=== PATIENT | female | born 1995 | race Caucasian/White ===

== ENCOUNTER → 2018-04-06 | Outpatient (CLI) | payer BC ==
[~2018-04-06] MED LIST: AMOX250S6 PO; BCP PO; CEFU250T11 PO; DEXA0.5E PO; HYDR473S50 PO; TETRACAINESUCKERS MT
--- NOTE | 2018-04-06 16:54 | Diagnostic Imaging Report ---
INDICATION: survey. TECHNIQUE: Multiple real-time grayscale images were obtained over the gravid uterus. COMPARISON: There are no prior studies available for comparison. FINDINGS: There is a single live fetus in transverse presentation. heart motion was noted and a rate of 136 BPM was recorded. There were no abnormalities identified but the spine was not well imaged. The growth parameters are fairly uniform and average 20 weeks 4 days +/-1.5 weeks. The placenta is anterior and there is no previa. The amniotic fluid volume is within normal limits. The cervix was identified and measures 5.1 cm in length. Biometrical measurements are as follows: Biparietal 4.78 cm, age 20 weeks 4 days. Head circumference 18.27 cm, age 20 weeks 5 days. Abdominal circumference 15.15 cm, age 20 weeks 3 days. Femur length 3.29 cm, age 20 weeks 2 days. Sonographic estimate age: 20 weeks 4 days. Sonographic estimated date of delivery: 08/20/18. Estimated Weight: 349 gm (+/- 51 gm). LMP percentile: 67%. heart rate: 143 beats per minute. number: 1 of 1. IMPRESSION: 1. There is a single live fetus at approximately 20 weeks 4 days gestation +/-1.5 weeks. The EDC is August 20, 2018. 2. There were no abnormalities identified, although the spine was not well imaged. It may prove worthwhile to have a short-term (4-6 week) followup exam for further study. 3. The growth parameters are fairly uniform. Dictated by: Dictated on workstation # [id number]
== END ==
LOC: RAD 15:22
PROVIDERS: ATTEND Obstetrics & Gynecology
DX: Z36.89 Encounter for other specified antenatal screening (principal); Z3A.20 20 weeks gestation of pregnancy
CPT/HCPCS: 76805

== ENCOUNTER 2018-08-19 20:45 | Inpatient (IN) | payer BC ==
[~2018-08-19] VITALS: Ht 160 cm; Wt 85.3 kg
--- NOTE | 2018-08-19 19:00 | NUR ---
RACHELL PERKINS presented to unit via by ambulation from ED, accompanied by SO, with c/o INDUCTION. RACHELL PERKINS weighed, gowned, voided, and to bed., VS taken. RACHELL PERKINS oriented to bed controls, call light, TV, heat, and A/C controls.
[2018-08-19 20:50] VITALS: BP 135/93
--- OUTSIDE RECORDS SUMMARY | 2018-08-19 20:50 | XMS REPORT ---
Author Author KURT MERRITT Organization [facility] Address [address] [place] [address] Care Team Providers Care Fly Raiser Lockstitch Name Role Phone KURT MERRITT Unavailable PROBLEMS Unknown Problems ALLERGIES Substance Reaction Event Type Date Status N.K.D.A. Unknown Non Drug Allergy Apr, Unknown SOCIAL HISTORY No smoking Hx information available PLAN OF CARE Activity Details Follow Up prn Reason: VITAL SIGNS Height 67 in 2016-05-13 Weight 175 lbs 2016-05-13 Temperature 98 degrees Fahrenheit 2016-05-13 Heart Rate 90 bpm 2016-05-13 Respiratory Rate 20 2016-05-13 BMI 27.41 kg/m2 2016-05-13 Blood pressure systolic 132 mmHg 2016-05-13 Blood pressure diastolic 72 mmHg 2016-05-13 MEDICATIONS Medication Instructions Dosage Frequency Start Date End Date Duration Status Filomena Colon Active RESULTS No Results PROCEDURES Procedure Date Ordered Related Diagnosis Body Site Office Visit, Est Pt., Level 3 May 13, 2016 IMMUNIZATIONS No Known Immunizations
--- OUTSIDE RECORDS SUMMARY | 2018-08-19 20:50 | XMS REPORT | Continuity of Care Document ---
Author Organization Unknown Address Unknown Allergies Active Description Code Type Severity Reaction Onset Reported/Identified Relationship to Patient Clinical Status Yes No Known Drug Allergies [id number] Drug Allergy Unknown N/A 09/15/2014 Medications There is no data. Problems Date Dx Coded Attending Type Code Diagnosis Diagnosed By 05/05/2014 Ot 789.02 05/10/2014 BERTHA HARDEN DO S Ot 241.0 06/05/2014 BERTHA HARDEN DO S Ot 241.0 08/01/2014 Ot 789.02 08/01/2014 MASTER HARDEN DOLINE S Ot 241.0 08/03/2014 MASTER HARDEN DOLINE S Ot 729.5 08/03/2014 MASTER HARDEN DOLINE S Ot 729.81 09/22/2014 CALLI CALIX, ILANA Gipson Ot 474.00 CHRONIC TONSILLITIS 09/22/2014 CALLI CALIX, ILANA Gipson Ot V74.8 SCREEN-BACTERIAL DIS NEC 12/01/2014 MASTER HARDEN DOLINE S Ot 729.5 12/01/2014 GRETCHEN HARDEN DOQUELINE S Ot 729.81 02/26/2015 MASTER HARDEN DOLINE S Ot E04.1 03/16/2015 MASTER HARDEN DOLINE S Ot E04.1 08/07/2015 MASTER HARDEN DOLINE S Ot E04.1 08/31/2015 MASTER HARDEN DOLINE S Ot E04.1 NONTOXIC SINGLE THYROID NODULE 10/12/2015 MASTER HARDEN DOLINE S Ot E04.1 NONTOXIC SINGLE THYROID NODULE 10/12/2015 Ot 789.02 ABDOMINAL PAIN, LEFT UPPER QUADRANT 10/12/2015 MASTER HARDEN DOLINE S Ot 241.0 NONTOX UNINODULAR GOITER 10/12/2015 BERTHA HARDEN DO S Ot E04.1 NONTOXIC SINGLE THYROID NODULE 11/09/2015 Ot 789.02 ABDOMINAL PAIN, LEFT UPPER QUADRANT 11/09/2015 BERTHA HARDEN DO Ot 241.0 NONTOX UNINODULAR GOITER 11/09/2015 BERTHA HARDEN DO Ot E04.1 NONTOXIC SINGLE THYROID NODULE 11/09/2015 BERTHA HARDEN DO Ot E04.1 NONTOXIC SINGLE THYROID NODULE 04/08/2018 FENDELVIS CASAS, ILANA Ferrer Ot Z36.89 ENCOUNTER FOR OTHER SPECIFIED 04/08/2018 DARIOECH ILANA CASAS Ot Z3A.20 20 WEEKS GESTATION OF 04/12/2018 FENECH DO, ILANA Ferrer Ot Z36.89 ENCOUNTER FOR OTHER SPECIFIED 04/12/2018 FENECH DO, ILANA Ferrer Ot Z3A.20 20 WEEKS GESTATION OF 04/23/2018 DARIOECH , ILANA Ferrer Ot Z36.89 ENCOUNTER FOR OTHER SPECIFIED 04/23/2018 DARIOECH DO, ILANA Ferrer Ot Z3A.20 20 WEEKS GESTATION OF Procedures There is no data. Results There is no data. Encounters ACCT No. Visit Date/Time Discharge Status Pt. Type Provider Facility Loc./Unit Complaint [id number] 04/06/2018 15:22:00 04/06/2018 23:59:59 CLS Outpatient ILANA TRAN DO [facility] RAD ENCOUNTER FOR OTHER SPECIFIED SCREENING [id number] 08/06/2015 13:02:00 08/06/2015 23:59:59 CLS Outpatient MASTER HARDEN DOLINE S [facility] RAD [id number] 02/22/2015 12:08:00 02/22/2015 23:59:59 CLS Outpatient ZENIAER BERTHA S [facility] RAD [id number] 09/22/2014 06:57:00 09/22/2014 13:50:00 DIS Outpatient ILANA MCCURDY MD [facility] [id number] 09/15/2014 05:51:00 09/15/2014 23:59:59 CLS Outpatient ILANA MCCURDY MD [facility] PREOP [id number] 08/01/2014 16:44:00 08/01/2014 23:59:59 CLS Outpatient FARHANANDER , BERTHA Ferrer [facility] RAD [id number] 05/05/2014 11:10:00 05/05/2014 23:59:59 CLS Outpatient BERTHA HARDEN DO [facility] RAD [id number] 08/19/2018 20:45:00 ACT Inpatient ILANA TRAN DO [facility] LDRP INDUCTION [id number] 07/04/2011 13:28:00 Document Registration
[2018-08-19] MEDS ORDERED: PREN1TAB79 PO (20:53)
--- NOTE | 2018-08-19 20:58 | NUR ---
#20g IV Lt.wrist x1 attempt by this RN. admission labs collected from site prior to IVF's infusing. pt tolerated well. secured with opsite & tape.
--- NOTE | 2018-08-19 21:00 | NUR ---
Pt on EFM and toco, admission process started.
[2018-08-19] MEDS ORDERED: MINERAL OIL CONCENTRATE 99.9% 15 ML UDC TOP PRN (21:15)
[2018-08-19] MEDS ORDERED: MISOPROSTOL 100 MCG (CYTOTEC) TAB PO ONE (21:15)
[2018-08-19 21:25] LABS: BASOPHILS % (AUTO) 0 % (0-10); EOSINOPHILS # (AUTO) 0.1 10^3/uL (0.0-0.3); EOSINOPHILS % (AUTO) 1 % (0-10); HEMATOCRIT 32 % (35-52); HEMOGLOBIN 10.7 G/DL (11.5-16.0); LYMPHOCYTES # (AUTO) 2.2 X 10^3 (1.0-4.0); LYMPHOCYTES % (AUTO) 23 % (12-44); MEAN CORPUSCULAR HEMOGLOBIN 29 PG (25-34); MEAN CORPUSCULAR HGB CONC 34 G/DL (32-36); MEAN CORPUSCULAR VOLUME 86 FL (80-99); MEAN PLATELET VOLUME 11.8 FL (7.4-10.4); MONOCYTES # (AUTO) 0.9 X 10^3 (0.0-1.0); MONOCYTES % (AUTO) 9 % (0-12); NEUTROPHILS # (AUTO) 6.3 X 10^3 (1.8-7.8); NEUTROPHILS % (AUTO) 67 % (42-75); PLATELET COUNT 212 10^3/uL (130-400); RED CELL DISTRIBUTION WIDTH 13.1 % (10.0-14.5); WHITE BLOOD COUNT 9.5 10^3/uL (4.3-11.0)
[2018-08-19] MEDS ORDERED: MISOPROSTOL 100 MCG (CYTOTEC) TAB ONE (21:57)
--- NOTE | 2018-08-19 22:04 | NUR ---
SVE per this RN. 1cm, 80%, anterior.
[2018-08-19] MEDS: D5 LR IV SOLUTION 1,000 ML IV SCH (22:10)
[2018-08-19] MEDS ORDERED: D5 LR IV SOLUTION 1,000 ML IV ONE (22:16)
[2018-08-19 22:20] VITALS: BP 128/73
[2018-08-19] MEDS: CATHETER FLUSH 10 ML SYR IV SCH (22:53)
--- NOTE | 2018-08-19 23:30 | History & Physical-OB ---
OB - Chief Complaint & HPI Date/Time Date of Admission: Date of Admission: Aug 19, 2018 at 20:45 Date seen by a Provider: Aug 19, 2018 Time Seen by a Provider: 22:45 Chief Complaint/History OB-Reason for Admission/Chief: Induction of Labor Hx : 1 Hx Para: 0 Expected Date of Delivery: Aug 24, 2018 Gestational Age in Weeks: 39 Gestational Age in Days: 2 Indication for induction: maternal discomfort Admission Nurse Assessment Rev: Yes Allergies and Home Medications Allergies Coded Allergies: No Known Drug Allergies (Unverified , 09/15/14) Patient Home Medication List Home Medication List Reviewed: Yes OB - History Hx of Present Care: Yes Ultrasounds: Normal mid trimester US Obstetrical Complications: None Medical Complications: None Delivery History Hx Blood Disorders: No Patient Past Medical History na Social History/Family History Alcohol Use: Denies Use Recreational Drug Use: No OB - Admission Exam Physical Exam Vitals: Vital Signs 08/19/18 08/19/18 20:50 22:20 Temp 98.4 Pulse 78 Resp 18 B/P (MAP) 128/73 (91) O2 Delivery Room Air HEENT: NCAT Heart: Rhythm Normal Lungs: Clear Abdomen: Gravid Extremities: Normal Reflexes: Normal Cervical Dilatation: 1cm Effacement: 75% Station: -2 Membranes: Intact Heart Rate: 130's Accelerations: Accelerations Present Decelerations: No Decelerations Short Term Variability: Present Supervisor Pipelines Variability: Average (6-25) Contractions on Admission: 6-10 Minutes Apart Intensity: Mild Muro Scoring Tool (Modified) Dilation (cm): 1-2cm (1) Effacement (%): 51-79% (2) Descent/Station: -2 (1) Cervix Consistency: Soft (2) Cervix Position: Anterior (2) Muro Score: 7 Labs Laboratory Tests Test 08/19/18 20:50 Range/Units White Blood Count 9.5 4.3-11.0 10^3/uL Red Blood Count 3.73 L 4.35-5.85 10^6/uL Hemoglobin 10.7 L 11.5-16.0 G/DL Hematocrit 32 L 35-52 % Mean Corpuscular Volume 86 80-99 FL Mean Corpuscular Hemoglobin 29 25-34 PG Mean Corpuscular Hemoglobin Concent 34 32-36 G/DL Red Cell Distribution Width 13.1 10.0-14.5 % Platelet Count 212 130-400 10^3/uL Mean Platelet Volume 11.8 H 7.4-10.4 FL Neutrophils (%) (Auto) 67 42-75 % Lymphocytes (%) (Auto) 23 12-44 % Monocytes (%) (Auto) 9 0-12 % Eosinophils (%) (Auto) 1 0-10 % Basophils (%) (Auto) 0 0-10 % Neutrophils # (Auto) 6.3 1.8-7.8 X 10^3 Lymphocytes # (Auto) 2.2 1.0-4.0 X 10^3 Monocytes # (Auto) 0.9 0.0-1.0 X 10^3 Eosinophils # (Auto) 0.1 0.0-0.3 10^3/uL Basophils # (Auto) 0.0 0.0-0.1 10^3/uL OB - Assessment/Plan/Diagnosis Assessment Assessment: induction of labor Admission Dx 22 yo @ 39 weeks Elective induction GBS neg Admission Status: Inpatient Order (span 2 midnights) Reason for Inpatient Admission: Induction of labor at term Plan Plan: Induction Induction Method: per Misoprostol Protocol ILANA TRAN DO Aug 19, 2018 23:30
[2018-08-20] VITALS (41 sets, daily range): BP systolic 109–191; BP diastolic 56–99
[2018-08-20] MEDS: MISOPROSTOL 100 MCG (CYTOTEC) TAB PO SCH ×2 (02:15→07:50)
--- NOTE | 2018-08-20 05:20 | NUR ---
Pt called this RN when she got up to void, for obvious SROM, large pool of clear fluid on floor. Pt completed voiding and returned to bed. SVE performed 1 cm 80% posterior. Dr Hanson called with report, order to start pitocin at this time.
[2018-08-20] MEDS ORDERED: OXYTOCIN/NORMAL SALINE 500 ML IV ONE (05:23)
[2018-08-20] MEDS ORDERED: OXYTOCIN/NORMAL SALINE 500 ML IV SCH ×2 (05:23→11:06)
[2018-08-20] MEDS ORDERED: LACTATED RINGERS 1,000 ML IV ONE ×3 (05:54→07:30)
[2018-08-20] MEDS: D5 LR IV SOLUTION 1,000 ML IV SCH (05:59)
[2018-08-20] MEDS ORDERED: SUFENTA 0.6MCG/ML BUPIVA 0.125 100 ML ONE (06:13)
[2018-08-20] MEDS ORDERED: LIDOCAINE PF 2% 5 ML (XYLOCAINE) VIAL ONE (06:34)
[2018-08-20] MEDS ORDERED: BUPIVACAINE 0.25% 30 ML (SENSORCAINE) VIAL ONE (06:34)
[2018-08-20] MEDS ORDERED: fentaNYL INJECTION 100 MCG/2 ML AMP ONE (06:34)
--- NOTE | 2018-08-20 07:20 | NUR ---
Dr. Hanson here to see pt, no new orders rec'd.
[2018-08-20] MEDS ORDERED: EPIDURAL (SUFENTA 0.6MCG/ML BUPIVA 0.125%) 100 ML BAG EPI PRN (07:30)
[2018-08-20] MEDS ORDERED: ONDANSETRON 4 MG/2 ML (SDV) Z0FRAN IV PRN (07:30)
[2018-08-20] MEDS ORDERED: NALOXONE 0.4 MG/ML 1 ML (NARCAN) VIAL IV PRN (07:30)
[2018-08-20] MEDS: CATHETER FLUSH 10 ML SYR IV SCH (07:48)
[2018-08-20] MEDS ORDERED: LIDOCAINE/EPI 2% 1:200,00 (XYLOCAINE) 10 ML VIAL ONE (09:55)
--- NOTE | 2018-08-20 11:11 | OB Labor & Delivery Record ---
L&D History Date of Service Date of Service: Aug 20, 2018 History Expected Date of Delivery: Aug 24, 2018 Gestational Age in Weeks: 39 Hx : 1 Hx Para: 0 Complications Events: Routine care Operative Indications (Cesarea: N/A-Vaginal Delivery Intrapartal Events: None L&D Stage1 Stage One Onset of Labor - Date: Aug 20, 2018 Monitors and Tracing Monitor Mode: External Heart Rate: 135 Monitor Accelerations: Uniform Monitor Decelerations: Variable Station: -3 Alf Variability: Average (6-10) Short Term Variability: Present Presentation: Vertex Vital Signs VS - Last 72 Hours, by Label 08/19/18 08/19/18 08/20/18 08/20/18 20:50 22:20 00:00 00:30 Temp 98.4 Pulse 98 78 70 69 Resp 18 18 18 18 B/P (MAP) 135/93 (107) 128/73 (91) 121/63 (82) 123/61 (81) O2 Delivery Room Air Room Air Room Air Room Air 08/20/18 08/20/18 08/20/18 08/20/18 01:20 02:20 03:20 04:30 Temp 97.9 Pulse 67 67 66 64 Resp 18 18 18 18 B/P (MAP) 135/81 (99) 133/68 (89) 126/71 (89) 133/86 (102) O2 Delivery Room Air Room Air Room Air Room Air 08/20/18 08/20/18 08/20/18 08/20/18 05:20 05:50 06:05 06:15 Temp 98.3 Pulse 66 87 94 96 Resp 18 18 18 18 B/P (MAP) 135/95 (108) 132/63 (86) 191/97 (128) 141/89 (106) O2 Delivery Room Air Room Air Room Air Room Air 08/20/18 08/20/18 08/20/18 08/20/18 06:30 06:45 06:51 06:54 Pulse 82 94 99 82 Resp 18 18 18 18 B/P (MAP) 150/99 (116) 129/72 (91) 122/73 (89) 114/66 (82) Pulse Ox 96 96 98 O2 Delivery Room Air Room Air Room Air 08/20/18 08/20/18 08/20/18 08/20/18 07:00 07:03 07:07 07:10 Temp 97.2 Pulse 84 74 83 91 Resp 18 18 18 18 B/P (MAP) 120/67 (84) 118/66 (83) 118/66 (83) 113/64 (80) Pulse Ox 98 98 100 08/20/18 08/20/18 08/20/18 08/20/18 07:15 07:20 07:25 07:32 Pulse 71 73 64 75 Resp 18 18 18 18 B/P (MAP) 114/61 (78) 113/62 (79) 114/58 (76) 113/62 (79) 08/20/18 08/20/18 08/20/18 08/20/18 07:35 07:40 07:55 08:12 Temp 96.6 Pulse 63 67 59 63 Resp 18 18 18 18 B/P (MAP) 114/61 (78) 110/60 (77) 113/68 (83) 113/71 (85) 08/20/18 08/20/18 08:28 08:42 Temp 96.0 Pulse 63 58 Resp 18 18 B/P (MAP) 121/62 (81) 117/62 (80) Rupture of Membranes Spontaneous Ruture of Membrane: Yes Amniotic Membrane Rupture Time: 0504 Amniotic Membrane Fluid Desc.: Clear Vaginal Bleeding Description: Normal Show Induction/Anesthesia Epidural Cath Placement - Time: 0653 Progress/Notes Patient admitted and started on cytotec po for cervical ripening. Pitocin augmentation started this AM due to SROM at approx 0500. She received an epidural, and progressed to complete and +1 station. L&D Stage2 Stage Two Stage II Date: Aug 20, 2018 Monitors and Tracing Monitor Mode: External Heart Rate: 135 Monitor Accelerations: Uniform Monitor Decelerations: Variable Personal Clothing Laundry Aide Variability: Average (6-10) Short Term Variability: Present Position: Right Occiput Anterior Presentation: Vertex Cord Descript/Complications Cord Vessel Description: 3 Vessels Delivery Type Infant Delivery Method: Spontaneous Vaginal Anterior Shoulder: Right Episiotomy/Perineal Laceration Laceraction(s)/Extensions: Yes Episiotomy Description: Midline Degree (describe repair) midline episiotomy repaired using 3-0 and 2-0 vicryl suture in usual fashion Condition of Infant Delivery 1 minute Comment: 8 5 minute Comment: 9 Notes Live male weight 8lbs 7oz Condition of Exam: No Observed Abnormalities Resuscitation Resuscitation: N/A - Spontaneous Resp L&D Stage3 Stage Three Stage III Date: Aug 20, 2018 Pictocin Pitocin Administration mu/min: 4 Pitocin ml/hr: 4 Pitocin Administration Comment: Pitocin wide open at delivery of the placenta Placenta Delivery Placenta Delivery: Spontaneous Delivery Summary Summary Estimated blood loss (mL): 300 Attending at delivery: Ilana Tran DO Condition of Delivery Examined: Cervix Examined, Uterus Explored Post Hemorrhage: No Condition of Mother stable Condition of (s) stable ILANA TRAN DO Aug 20, 2018 11:11
--- NOTE | 2018-08-20 11:12 | Discharge Inst-Women's Service ---
Discharge Inst-Women's Serv Depart Medication/Instructions New, Converted or Re-Newed RX: RX on Chart Final Diagnosis PPD 1 NVD Consults/Follow Up Additional Follow Up: Yes Orders/Referrals Valentin in 6 weeks Activity Activity: Activity as Tolerated Driving Instructions: No Driving for 1 Week NO SMOKING: NO SMOKING Nothing Inside Vagina: No Douching, No [place], No Tampons Diet Discharge Diet: No Restrictions Symptoms to Report to : Bleeding Excessive, Pain Increased, Fever Over 101 Degrees F, Vaginal Bleeding Increase, Questions/Concerns For Any Problems or Questions: Contact Your Physician ILANA TRAN DO Aug 20, 2018 11:12
[2018-08-20] MEDS ORDERED: Benzocaine/Menthol TP (11:14)
[2018-08-20] MEDS ORDERED: IBUP-844 PO (11:14)
[2018-08-20] MEDS ORDERED: DIBU30OI TOP (11:14)
[2018-08-20] MEDS ORDERED: ACHD5005 PO (11:14)
[2018-08-20] MEDS ORDERED: FERR325T18 PO (11:14)
[2018-08-20] MEDS ORDERED: DOCU-143 PO (11:14)
[2018-08-20] MEDS ORDERED: DIBUCAINE (NUPERCAINAL) 1% OINT 30 GM TOP PRN (11:15)
[2018-08-20] MEDS ORDERED: MEASLES,MUMPS,RUBELLA 1 EA INJ SQ ONE (11:15)
[2018-08-20] MEDS ORDERED: BENZOCAINE/MENTHOL (DERMOPLAST) 56 ML CAN TP PRN (11:15)
[2018-08-20] MEDS ORDERED: WITCH HAZEL(TUCKS) 40 EA JAR TOP PRN (11:15)
[2018-08-20] MEDS ORDERED: TETANUS,DIPTH,PERTUSS P/F (BOOSTRIX) 0.5 ML VIAL IM ONE (11:15)
[2018-08-20] MEDS: IBUPROFEN 600 MG (MOTRIN) TAB PO SCH ×2 (12:52→19:57)
[2018-08-20] MEDS ORDERED: CATHETER FLUSH 10 ML SYR IV SCH (14:00)
--- NOTE | 2018-08-20 14:00 | NUR ---
FFU/2, light rubra lochia noted, no clots expressed. Pericare performed. Clean gown on. Fresh pad and underwear on. Pt assisted to standing position at side of bed. Epidural catheter removed without difficulty, tip intact. Pt ambulates self to bathroom without incident, +void. Pericare demonstrated. Pt ambulates self to room 312 accompanied by RN, S.O., and in open crib. Pt and s.o. oriented to room and call light. packet explained. Fresh ice water provided. Ice pack to perineum and dermoplast/tucks pads supplied. Pt preparing to eat food provided by family. Denies further needs at this time.
[2018-08-20] MEDS: HYDROcodone/APAP 5 MG/325 MG (LORTAB) TAB PO PRN (17:15)
[2018-08-20] MEDS: DOCUSATE SODIUM 100 MG (COLACE) CAP PO SCH (19:57)
[2018-08-21 00:50] VITALS: BP 121/82
[2018-08-21] MEDS: IBUPROFEN 600 MG (MOTRIN) TAB PO SCH ×4 (01:51→20:39)
[2018-08-21 05:05] VITALS: BP 135/88
[2018-08-21 06:48] LABS: BASOPHILS % (AUTO) 0 % (0-10); EOSINOPHILS # (AUTO) 0.2 10^3/uL (0.0-0.3); EOSINOPHILS % (AUTO) 2 % (0-10); HEMATOCRIT 30 % (35-52); HEMOGLOBIN 9.6 G/DL (11.5-16.0); LYMPHOCYTES # (AUTO) 1.8 X 10^3 (1.0-4.0); LYMPHOCYTES % (AUTO) 17 % (12-44); MEAN CORPUSCULAR HEMOGLOBIN 28 PG (25-34); MEAN CORPUSCULAR HGB CONC 33 G/DL (32-36); MEAN CORPUSCULAR VOLUME 87 FL (80-99); MEAN PLATELET VOLUME 11.3 FL (7.4-10.4); MONOCYTES # (AUTO) 0.9 X 10^3 (0.0-1.0); MONOCYTES % (AUTO) 8 % (0-12); NEUTROPHILS % (AUTO) 74 % (42-75); PLATELET COUNT 169 10^3/uL (130-400); RED CELL DISTRIBUTION WIDTH 13.4 % (10.0-14.5); WHITE BLOOD COUNT 10.9 10^3/uL (4.3-11.0)
[2018-08-21 07:52] VITALS: BP 126/80
--- NOTE | 2018-08-21 08:05 | NUR ---
DR. TRAN HERE TO SEE PT.
--- NOTE | 2018-08-21 08:24 | Postpartum Progress Note ---
Note Note Day # 1 Subjective: Patient is without complaints. Ambulating, voiding. Tolerating a regular diet without nausea or vomiting. Normal lochia. Pain is well controlled with oral pain medications. Objective: Physical Exam: General - Alert and oriented, no apparent distress Abdomen - Soft, appropriately tender to palpation, non-distended, fundus firm at umbilicus Extremities - no edema, negative Stephan's bilaterally Assessment: PPD 1 NVD Acute blood loss anemia Plan: Routine care. Encourage breast feeding. Encourage ambulation. Ferrous sulfate supplementation. Plan for discharge today Vitals - Labs Vital Signs - I&O Vital Signs Date Time Temp Pulse Resp B/P (MAP) Pulse Ox O2 Delivery O2 Flow Rate FiO2 08/21/18 07:52 96.6 88 14 126/80 (95) 98 Room Air 08/21/18 05:05 97.7 89 18 135/88 (104) 98 08/21/18 00:50 98.6 90 18 121/82 (95) 99 08/20/18 19:52 98.6 84 18 116/71 (86) 100 08/20/18 17:15 99.2 73 18 119/62 (81) 98 Room Air 08/20/18 12:40 93 18 130/67 (88) 08/20/18 12:25 98.6 84 18 131/68 (89) 08/20/18 12:11 79 18 109/62 (78) 08/20/18 11:25 85 18 122/68 (86) 08/20/18 11:12 98.1 96 18 115/56 (75) 08/20/18 10:28 107 18 133/83 (100) 08/20/18 10:12 137 18 131/68 (89) 08/20/18 09:43 94 18 135/81 (99) 08/20/18 09:26 61 18 120/65 (83) 08/20/18 09:13 66 18 118/67 (84) 08/20/18 08:58 60 18 110/65 (80) 08/20/18 08:42 96.0 58 18 117/62 (80) 08/20/18 08:28 63 18 121/62 (81) I & O 08/21/18 07:00 Intake Total 1700 ml Balance 1700 ml Labs Laboratory Tests 08/21/18 06:39: White Blood Count 10.9, Red Blood Count 3.40L, Hemoglobin 9.6L, Hematocrit 30L, Mean Corpuscular Volume 87, Mean Corpuscular Hemoglobin 28, Mean Corpuscular Hemoglobin Concent 33, Red Cell Distribution Width 13.4, Platelet Count 169, Mean Platelet Volume 11.3H, Neutrophils (%) (Auto) 74, Lymphocytes (%) (Auto) 17 , Monocytes (%) (Auto) 8, Eosinophils (%) (Auto) 2, Basophils (%) (Auto) 0, Neutrophils # (Auto) 8.0H, Lymphocytes # (Auto) 1.8, Monocytes # (Auto) 0.9, Eosinophils # (Auto) 0.2, Basophils # (Auto) 0.0 ILANA TRAN DO Aug 21, 2018 08:24
[2018-08-21] MEDS: DOCUSATE SODIUM 100 MG (COLACE) CAP PO SCH ×2 (08:32→20:39)
[2018-08-21] MEDS: FERROUS SULF 325 MG (IRON) TAB PO SCH (08:32)
[2018-08-21] MEDS: PRENATAL VITAMIN 1 EA TAB PO SCH (08:32)
--- NOTE | 2018-08-21 08:45 | NUR ---
THIS RN TO BEDSIDE, SELF INTRODUCED. MEDS GIVEN; SEE EMAR FOR FURTHER. INITIAL SHIFT ASSESSMENT COMPLETED; SEE INTERVENTION FOR FURTHER. IV DC'D. SHOWER SET UP. S/O AT THE BEDSIDE. NO NEEDS VOICED. CALL LIGHT WITHIN REACH.
[2018-08-21] MEDS: HYDROcodone/APAP 5 MG/325 MG (LORTAB) TAB PO PRN ×2 (11:31→17:56)
--- NOTE | 2018-08-21 12:40 | NUR ---
PT UP AMBULATING HALLWAYS WITH S/O AND INFANT.
[2018-08-21 13:52] VITALS: BP 115/61
--- NOTE | 2018-08-21 14:45 | NUR ---
PT SITTING UP ON THE SIDE OF THE BED, . ROUTINE MOTRIN GIVEN PO; SEE EMAR FOR FURTHER. NO NEEDS VOICED. VISITOR AT THE BEDSIDE.
--- NOTE | 2018-08-21 15:35 | NUR ---
PT SITTING UP IN BED, EATING, NO NEEDS VOICED.
--- NOTE | 2018-08-21 18:06 | NUR ---
PT UP IN THE ROOM. LORTAB PROVIDED PT IS C/O HEADACHE; SEE EMAR FOR FURTHER. FAMILY AT THE BEDSIDE. RX'S CALLED INTO [facility], VOICE MESSAGE LEFT. NO FURTHER NEEDS VOICED.
[2018-08-21 21:00] VITALS: BP 115/74
--- NOTE | 2018-08-21 23:29 | NUR ---
Pt assisted with swaddling and education of sleeping area for given.
[2018-08-22 03:00] VITALS: BP 129/89
[2018-08-22] MEDS: IBUPROFEN 600 MG (MOTRIN) TAB PO SCH ×2 (03:00→08:25)
[2018-08-22 08:20] VITALS: BP 133/81
[2018-08-22] MEDS: DOCUSATE SODIUM 100 MG (COLACE) CAP PO SCH (08:24)
[2018-08-22] MEDS: PRENATAL VITAMIN 1 EA TAB PO SCH (08:25)
[2018-08-22] MEDS: FERROUS SULF 325 MG (IRON) TAB PO SCH (08:25)
--- NOTE | 2018-08-22 09:04 | Postpartum Progress Note ---
Note Note Day # 2 Subjective: Patient is without complaints. Ambulating, voiding. Tolerating a regular diet without nausea or vomiting. Normal lochia. Pain is well controlled with oral pain medications. Objective: Physical Exam: General - Alert and oriented, no apparent distress Abdomen - Soft, appropriately tender to palpation, non-distended, fundus firm at umbilicus Extremities - no edema, negative Stephan's bilaterally Assessment: PPD 2 NVD Acute blood loss anemia Plan: Routine care. Encourage breast feeding. Encourage ambulation. Ferrous sulfate supplementation. Plan for discharge today Vitals - Labs Vital Signs - I&O Vital Signs Date Time Temp Pulse Resp B/P (MAP) Pulse Ox O2 Delivery O2 Flow Rate FiO2 08/22/18 08:20 98.0 77 18 133/81 (98) 08/22/18 03:00 97.9 81 18 129/89 (102) 97 08/21/18 21:00 98.5 86 18 115/74 (88) 98 08/21/18 13:52 97.3 80 14 115/61 (79) 99 Room Air ILANA TRAN DO Aug 22, 2018 09:04
--- NOTE | 2018-08-22 09:05 | NUR ---
dr nicholson here new orders received.
--- NOTE | 2018-08-22 14:05 | NUR ---
RACHELL PERKINS demonstrates understanding of discharge instructions and accurately returns instructions upon questioning. Copy of Post-Discharge Instructions and Medication Discharge Instructions given to patient. RACHELL PERKINS is able to manage continuing needs after discharge. Patients belongings returned to patient. Skin dry and intact; no breakdown noted. Patient discharged from [facility]- on 08-22-18 at 1405. RACHELL PERKINS left floor via ambulation, accompanied by staff.
--- NOTE | 2018-08-22 15:03 | Anesthesia-Regional Post-Op ---
Regional Patient Condition Mental Status: Alert, Oriented x3 Circulation: Same as Pre-Op Headache: Absent Sensation: Full Recovery Motor Block: Absent Post Op Complications Complications None Follow Up Care/Instructions Patient Instructions None needed. Anesthesia/Patient Condition Patient is doing well, no complaints, stable vital signs, no apparent adverse anesthesia problems. No complications reported per nursing. AYAN ROBISON CRNA Aug 22, 2018 15:03
== END 2018-08-22 14:05 | disposition home or self-care (01) | DRG 806 ==
LOC: LDRP 20:45
PROVIDERS: ADMIT Obstetrics & Gynecology; ATTEND Obstetrics & Gynecology
PROC: 3E0DXGC Introduction of Other Therapeutic Substance into Mouth and Pharynx, External Approach (ICD-10-PCS; 2018-08-19)
PROC: 10E0XZZ Delivery of Products of Conception, External Approach (ICD-10-PCS; principal; 2018-08-20)
PROC: 0W8NXZZ Division of Female Perineum, External Approach (ICD-10-PCS; 2018-08-20)
DX: O90.81 Anemia of the puerperium (principal); D62 Acute posthemorrhagic anemia; Z3A.39 39 weeks gestation of pregnancy; Z37.0 Single live birth
CPT/HCPCS: 36415; 85025; 86850; 86900; 86901

== ENCOUNTER 2020-04-15 14:00 | Inpatient (IN) | payer BC ==
[~2020-04-15] VITALS: Ht 160 cm; Wt 88.9 kg
[~2020-04-15 14:00] MED LIST changes: +ACHD5005 PO; +Benzocaine/Menthol TP; +DIBU30OI TOP; +DOCU-143 PO; +FERR325T18 PO; +IBUP-844 PO; +PREN1TAB79 PO
--- NOTE | 2020-04-15 19:03 | NUR ---
RACHELL PERKINS presented to unit via ambulation from ED, accompanied by for INDUCTION. RACHELL PERKINS weighed, gowned, voided, and to bed. EFHM and TOCO applied, VS taken. RACHELL PERKINS oriented to bed controls, call light, TV, heat, and A/C controls.
[2020-04-15] MEDS ORDERED: MINERAL OIL CONCENTRATE 99.9% 15 ML UDC TOP PRN (19:15)
[2020-04-15] MEDS ORDERED: MISOPROSTOL 100 MCG (CYTOTEC) TAB PO ONE (19:15)
[2020-04-15] MEDS ORDERED: NS IV 500 ML 500 ML IV ONE (19:15)
[2020-04-15] MEDS ORDERED: D5 LR IV SOLUTION 1,000 ML IV ONE (19:27)
[2020-04-15] MEDS ORDERED: NS IV 500 ML 500 ML ONE (19:55)
[2020-04-15 20:00] VITALS: BP 131/91
[2020-04-15 20:09] LABS: BASOPHILS % (AUTO) 0 % (0-10); EOSINOPHILS # (AUTO) 0.1 10^3/uL (0.0-0.3); EOSINOPHILS % (AUTO) 1 % (0-10); HEMATOCRIT 35 % (35-52); HEMOGLOBIN 11.8 g/dL (11.5-16.0); LYMPHOCYTES # (AUTO) 2.1 10^3/uL (1.0-4.0); LYMPHOCYTES % (AUTO) 21 % (12-44); MEAN CORPUSCULAR HEMOGLOBIN 30 pg (25-34); MEAN CORPUSCULAR HGB CONC 34 g/dL (32-36); MEAN CORPUSCULAR VOLUME 89 fL (80-99); MEAN PLATELET VOLUME 11.3 fL (9.0-12.2); MONOCYTES # (AUTO) 0.7 10^3/uL (0.0-1.0); MONOCYTES % (AUTO) 6 % (0-12); NEUTROPHILS # (AUTO) 7.3 10^3/uL (1.8-7.8); NEUTROPHILS % (AUTO) 72 % (42-75); PLATELET COUNT 189 10^3/uL (130-400); WHITE BLOOD COUNT 10.2 10^3/uL (4.3-11.0)
[2020-04-15 20:17] VITALS: BP 138/89
[2020-04-15] MEDS: D5 LR IV SOLUTION 1,000 ML IV SCH (20:31)
[2020-04-15 21:00] VITALS: BP 120/71
[2020-04-15 22:00] VITALS: BP 122/84
[2020-04-15] MEDS ORDERED: CATHETER FLUSH 10 ML SYR IV SCH (22:00)
[2020-04-15 23:00] VITALS: BP 120/71
[2020-04-15] MEDS ORDERED: MISOPROSTOL 100 MCG (CYTOTEC) TAB PO SCH (23:15)
[2020-04-15] MEDS ORDERED: CALCIUM CARBONATE 500 MG (TUMS) TAB.CHEW ONE (23:30)
[2020-04-15] MEDS ORDERED: CALCIUM CARBONATE 500 MG (TUMS) TAB.CHEW PO ONE (23:45)
[2020-04-16] VITALS (63 sets, daily range): BP systolic 105–140; BP diastolic 55–92
[2020-04-16] MEDS ORDERED: ONDANSETRON 4 MG/2 ML (SDV) Z0FRAN ONE (01:28)
[2020-04-16] MEDS ORDERED: ONDANSETRON 4 MG/2 ML (SDV) Z0FRAN IVP ONE (01:45)
[2020-04-16] MEDS ORDERED: fentaNYL 2 mcg/ml BUPIVA 0.125 100 ML ONE (02:19)
[2020-04-16] MEDS ORDERED: LACTATED RINGERS 1,000 ML IV ONE (02:30)
[2020-04-16] MEDS ORDERED: diphenhydrAMINE 50 MG/ML INJ (BENADRYL) IV PRN (04:00)
[2020-04-16] MEDS ORDERED: NALOXONE 0.4 MG/ML 1 ML (NARCAN) VIAL IV PRN ×2 (04:00)
[2020-04-16] MEDS ORDERED: LACTATED RINGERS 1,000 ML IV SCH (04:00)
[2020-04-16] MEDS ORDERED: METOCLOPRAMIDE INJ 10 MG/2 ML (REGLAN) IV PRN (04:00)
[2020-04-16] MEDS: EPIDURAL (fentaNYL 2 MCG/ML BUPIVA 0.125%)100 ML BAG EPI SCH ×2 (05:31→11:26)
[2020-04-16] MEDS ORDERED: OXYTOCIN PRE-MIX DRIP 500 ML IV ONE (06:35)
[2020-04-16] MEDS: OXYTOCIN PRE-MIX DRIP 500 ML IV SCH ×2 (06:43→14:27)
[2020-04-16] MEDS: ONDANSETRON 4 MG/2 ML (SDV) Z0FRAN IV PRN ×2 (06:53→11:27)
--- NOTE | 2020-04-16 07:51 | History & Physical-OB ---
OB - Chief Complaint & HPI Date/Time Date of Admission: Date of Admission: Apr 15, 2020 at 18:57 Date seen by a Provider: Apr 16, 2020 Time Seen by a Provider: 07:45 Chief Complaint/History OB-Reason for Admission/Chief: Induction of Labor Hx : 2 Hx Para: 1 Expected Date of Delivery: Apr 21, 2020 Gestational Age in Weeks: 39 Gestational Age in Days: 1 Indication for induction: maternal discomfort Admission Nurse Assessment Rev: Yes Allergies and Home Medications Allergies Coded Allergies: No Known Drug Allergies (Unverified , 09/15/14) Patient Home Medication List Home Medication List Reviewed: Yes OB - History Hx of Present Care: Yes Ultrasounds: Normal mid trimester US Obstetrical Complications: None Medical Complications: None Delivery History Hx Blood Disorders: No Adverse Rxn to Tranfusion: No Patient Past Medical History na Social History/Family History Recent Infectious Disease Expo: No Alcohol Use: Denies Use Recreational Drug Use: No Immunizations Date of Influenza Vaccine: Jan 15, 2020 OB - Admission Exam Physical Exam Vitals: Vital Signs 04/16/20 04/16/20 04/16/20 04:27 06:15 07:00 Temp 36.5 Pulse 81 Resp 18 B/P (MAP) 116/63 (80) Pulse Ox 97 O2 Delivery Room Air HEENT: NCAT Heart: Rhythm Normal Lungs: Clear Abdomen: Gravid Extremities: Normal Reflexes: Normal Cervical Dilatation: 1cm Effacement: 75% Station: -1 Membranes: Intact Heart Rate: 130's Accelerations: Accelerations Present Decelerations: No Decelerations Short Term Variability: Present Senior Living Variability: Average (6-25) Contractions on Admission: 6-10 Minutes Apart Intensity: Mild Muro Scoring Tool (Modified) Dilation (cm): 1-2cm (1) Effacement (%): 51-79% (2) Descent/Station: -1,0 (2) Cervix Consistency: Soft (2) Cervix Position: Anterior (2) Add 1 point for: Each previous vaginal delivery (1) Muro Score: 10 Labs Laboratory Tests Test 04/15/20 19:45 Range/Units White Blood Count 10.2 4.3-11.0 10^3/uL Red Blood Count 3.88 3.80-5.11 10^6/uL Hemoglobin 11.8 11.5-16.0 g/dL Hematocrit 35 35-52 % Mean Corpuscular Volume 89 80-99 fL Mean Corpuscular Hemoglobin 30 25-34 pg Mean Corpuscular Hemoglobin Concent 34 32-36 g/dL Red Cell Distribution Width 13.2 10.0-14.5 % Platelet Count 189 130-400 10^3/uL Mean Platelet Volume 11.3 9.0-12.2 fL Immature Granulocyte % (Auto) 1 % Neutrophils (%) (Auto) 72 42-75 % Lymphocytes (%) (Auto) 21 12-44 % Monocytes (%) (Auto) 6 0-12 % Eosinophils (%) (Auto) 1 0-10 % Basophils (%) (Auto) 0 0-10 % Neutrophils # (Auto) 7.3 1.8-7.8 10^3/uL Lymphocytes # (Auto) 2.1 1.0-4.0 10^3/uL Monocytes # (Auto) 0.7 0.0-1.0 10^3/uL Eosinophils # (Auto) 0.1 0.0-0.3 10^3/uL Basophils # (Auto) 0.0 0.0-0.1 10^3/uL Immature Granulocyte # (Auto) 0.1 0.0-0.1 10^3/uL OB - Assessment/Plan/Diagnosis Assessment Assessment: induction of labor Admission Dx 24 yo @ 39 weeks Elective induction of labor Admission Status: Inpatient Order (span 2 midnights) Reason for Inpatient Admission: Induction of labor at term Plan Plan: Induction ILANA TRAN DO Apr 16, 2020 07:51
--- NOTE | 2020-04-16 08:00 | NUR ---
A.M. ASSESSMENT COMPLETED. SEE LABOR FLOW CHARTING.
[2020-04-16] MEDS: D5 LR IV SOLUTION 1,000 ML IV SCH (12:04)
[2020-04-16] MEDS ORDERED: MEASLES,MUMPS,RUBELLA 1 EA INJ SQ ONE (14:45)
[2020-04-16] MEDS ORDERED: OXYTOCIN PRE-MIX DRIP 500 ML IV SCH (14:45)
--- NOTE | 2020-04-16 14:45 | NUR ---
CALLED DR. TRAN. THIS RN TO PUT IN PP ORDERS.
--- NOTE | 2020-04-16 14:53 | NUR ---
PAD CHANGE. FUNDUS MASSAGED TO FIRM AT U/1. VAG FLOW LT/MOD RUBRA. CONTINUES TO HOLD INFANT AND BREASTFEEDS WELL. HANDED TO FOB WHILE GETTING PERICARE.
--- NOTE | 2020-04-16 15:00 | NUR ---
ICE PACK PLACED TO PERINEUM. SWELLING NOTED.
[2020-04-16] MEDS: BENZOCAINE/MENTHOL (DERMOPLAST) 60 ML CAN TP PRN (15:55)
[2020-04-16] MEDS: WITCH HAZEL(TUCKS) 40 EA JAR TOP PRN (15:55)
--- NOTE | 2020-04-16 16:00 | NUR ---
FF U/1. VAG FLOW LT/MOD RUBRA. VSS. CONTINUES TO CARE FOR INFANT IN ROOM.
--- NOTE | 2020-04-16 17:36 | OB Labor & Delivery Record ---
L&D History Date of Service Date of Service: Apr 16, 2020 History Expected Date of Delivery: Apr 21, 2020 Gestational Age in Weeks: 39 Hx : 2 Hx Para: 1 Complications Events: Routine care Operative Indications (Cesarea: N/A-Vaginal Delivery Intrapartal Events: None L&D Stage1 Stage One Onset of Labor - Date: Apr 16, 2020 Monitors and Tracing Monitor Mode: External Heart Rate: 135 Monitor Accelerations: Uniform Monitor Decelerations: None Station: -1 Counterintelligence Specialist Variability: Average (6-10) Short Term Variability: Present Presentation: Vertex Vital Signs VS - Last 72 Hours, by Label 04/15/20 04/15/20 04/15/20 04/15/20 20:00 20:17 21:00 22:00 Temp 37.3 Pulse 100 109 86 77 Resp 18 18 18 18 B/P (MAP) 131/91 (104) 120/71 (87) 122/84 (97) Pulse Ox 98 O2 Delivery Room Air Room Air Room Air 04/15/20 04/16/20 04/16/20 04/16/20 23:00 00:00 01:00 02:00 Temp 36.6 Pulse 75 81 71 83 Resp 18 18 18 18 B/P (MAP) 120/71 (87) 112/71 (85) 126/75 (92) 126/77 (93) O2 Delivery Room Air Room Air Room Air Room Air 04/16/20 04/16/20 04/16/20 04/16/20 03:00 03:25 03:30 03:33 Pulse 80 112 110 97 Resp 18 B/P (MAP) 122/80 (94) 133/92 (106) 133/81 (98) 133/80 (97) Pulse Ox 98 98 98 O2 Delivery Room Air 04/16/20 04/16/20 04/16/20 04/16/20 03:35 03:42 03:52 04:01 Pulse 87 84 90 76 B/P (MAP) 133/81 (98) 131/69 (89) 126/75 (92) 122/69 (86) Pulse Ox 98 98 98 97 04/16/20 04/16/20 04/16/20 04/16/20 04:06 04:11 04:16 04:22 Pulse 73 82 78 77 B/P (MAP) 125/80 (95) 116/79 (91) 118/80 (93) 119/66 (83) Pulse Ox 98 97 97 97 04/16/20 04/16/20 04/16/20 04/16/20 04:27 04:42 04:49 05:12 Pulse 72 67 59 62 B/P (MAP) 120/70 (87) 112/70 (84) 114/68 (83) 109/59 (76) Pulse Ox 97 04/16/20 04/16/20 04/16/20 04/16/20 05:42 05:58 06:15 06:30 Temp 36.5 Pulse 69 68 63 64 Resp 18 18 B/P (MAP) 109/55 (73) 107/62 (77) 110/65 (80) 116/67 (83) O2 Delivery Room Air Room Air 04/16/20 04/16/20 04/16/20 04/16/20 06:45 07:00 07:15 07:30 Pulse 79 81 65 88 Resp 18 18 18 18 B/P (MAP) 123/77 (92) 116/63 (80) 122/72 (89) 121/79 (93) O2 Delivery Room Air Room Air Room Air Room Air 04/16/20 04/16/20 04/16/20 04/16/20 07:45 08:00 08:15 08:30 Temp 36.5 Pulse 81 86 83 85 Resp 18 18 18 18 B/P (MAP) 120/72 (88) 115/75 (88) 116/73 (87) 107/75 (86) Pulse Ox 100 O2 Delivery Room Air Room Air Room Air Room Air 04/16/20 04/16/20 04/16/20 04/16/20 08:45 09:00 09:15 09:30 Pulse 84 62 60 70 Resp 18 18 18 18 B/P (MAP) 107/72 (84) 110/60 (77) 111/61 (78) 114/66 (82) O2 Delivery Room Air Room Air Room Air Room Air 04/16/20 04/16/20 04/16/20 04/16/20 09:45 10:00 10:15 10:30 Temp 36.5 Pulse 68 85 61 77 Resp 18 18 18 18 B/P (MAP) 108/59 (75) 110/64 (79) 112/71 (85) 113/70 (84) O2 Delivery Room Air Room Air Room Air Room Air 04/16/20 04/16/20 04/16/20 04/16/20 10:45 11:00 11:15 11:30 Temp 36.5 Pulse 57 80 80 75 Resp 18 18 18 18 B/P (MAP) 113/68 (83) 116/75 (89) 105/61 (76) 119/67 (84) Pulse Ox 98 O2 Delivery Room Air Room Air Room Air Room Air 04/16/20 04/16/20 04/16/20 04/16/20 11:45 12:00 12:15 12:30 Temp 36.9 Pulse 62 65 88 89 Resp 18 18 18 18 B/P (MAP) 107/58 (74) 111/64 (80) 106/59 (75) 112/71 (85) O2 Delivery Room Air Room Air Room Air Room Air Rupture of Membranes Spontaneous Ruture of Membrane: No Amniotic Membrane Rupture Time: 07 Amniotic Membrane Fluid Desc.: Clear Vaginal Bleeding Description: Normal Show Induction/Anesthesia Epidural Cath Placement - Time: 033 Progress/Notes Patient admitted last night and given oral misoprostol for induction/cervical ripening. She received an epidural dry drug worker, and pitocin augmentation was started approx 630 this am. She progressed to complete and +2 station using max dose of 6 mu/min. L&D Stage2 Stage Two Stage II Date: Apr 16, 2020 Monitors and Tracing Monitor Mode: External Heart Rate: 135 Monitor Accelerations: Uniform Monitor Decelerations: Variable Residential Variability: Average (6-10) Short Term Variability: Present Position: Right Occiput Anterior Presentation: Vertex Cord Descript/Complications Cord Vessel Description: 3 Vessels Delivery Type Infant Delivery Method: Spontaneous Vaginal Anterior Shoulder: Left Episiotomy/Perineal Laceration Laceraction(s)/Extensions: Yes Episiotomy Description: Perineal Extension/lac, 1st degree Degree (describe repair) laceration repaired using 3-0 rapide vicryl in usual fashion. Condition of Infant Delivery 1 minute Comment: 8 5 minute Comment: 9 Notes Live male weight 8 lbs even Condition of Infant Condition of : Living Exam: No Observed Abnormalities Resuscitation Resuscitation: N/A - Spontaneous Resp L&D Stage3 Stage Three Stage III Date: Apr 16, 2020 Pictocin Pitocin Administration mu/min: 4 Pitocin ml/hr: 4 Pitocin Administration Comment: 0740 PITOCIN INCREASED Placenta Delivery Placenta Delivery: Spontaneous Delivery Summary Summary Estimated blood loss (mL): 300 Attending at delivery: Ilana Tran DO Condition of Delivery Examined: Cervix Examined, Uterus Explored Post Hemorrhage: No Condition of Mother stable Condition of (s) stable ILANA TRAN DO Apr 16, 2020 17:36
[2020-04-16] MEDS: IBUPROFEN 600 MG (MOTRIN) TAB PO SCH ×2 (17:52→23:08)
--- NOTE | 2020-04-16 17:52 | NUR ---
C/O SORE BOTTOM RATED 5/10. BLADDER PALPABLE.
--- NOTE | 2020-04-16 17:57 | NUR ---
DR. GOMEZ IN TO EXAMINE AND TALK WITH PARENTS.
--- NOTE | 2020-04-16 18:10 | NUR ---
UP TO THE BATHROOM VIA W/C R/T LEFT LEG STILL HAVING DECREASED SENSATION. VOIDED LARGE AMOUNT OF URINE. PERICARE PERFORMED WITH DERMAPLAST SPRAY AND TUCKS APPLIED.
--- NOTE | 2020-04-16 18:20 | NUR ---
TRANSFERRED VIA W/C TO ROOM 309 IN STABLE CONDITION. ASSISTED TO BED. ORIENTED TO SURROUNDINGS, BED CONTROLS, CALL LIGHT OPERATION, PHONE AND MENU PROCEDURE. FF U/2. PERINEUM SWOLLEN. FF U/2. VAG FLOW LT RUBRA. ICE PACK PLACED. HASN'T EATEN MUCH OF FOOD FOR DINNER BUT STATES SHE WANTS TO FEED THE BABY FIRST. SPOUSE AT BEDSIDE. INFORMATION PAPERS GIVEN.
[2020-04-16] MEDS ORDERED: ACETAMINOPHEN 500 MG TAB (TYLENOL) ONE (20:55)
[2020-04-16] MEDS: DOCUSATE SODIUM 100 MG (COLACE) CAP PO SCH (21:03)
[2020-04-16] MEDS: ACETAMINOPHEN 500 MG TAB (TYLENOL) PO PRN (21:04)
--- NOTE | 2020-04-16 21:17 | NUR ---
Pt resting in bed, assessment completed. pt has minimal numbness in left leg. Able to ambulate well with standby assistance. Pt assisted to the bathroom. positive void. c/o vaginal pain. Ice pack applied. prn tylenol given. ice water refilled. gown changed. pt denies any further needs at this time. Will continue to monitor.
[2020-04-16] MEDS ORDERED: CATHETER FLUSH 10 ML SYR IV SCH (22:00)
[2020-04-17 01:02] VITALS: BP 128/73
[2020-04-17] MEDS: IBUPROFEN 600 MG (MOTRIN) TAB PO SCH ×2 (05:55→11:32)
[2020-04-17 06:01] VITALS: BP 134/87
[2020-04-17 06:10] LABS: BASOPHILS % (AUTO) 0 % (0-10); EOSINOPHILS # (AUTO) 0.1 10^3/uL (0.0-0.3); EOSINOPHILS % (AUTO) 1 % (0-10); HEMATOCRIT 34 % (35-52); HEMOGLOBIN 11.4 g/dL (11.5-16.0); LYMPHOCYTES % (AUTO) 19 % (12-44); MEAN CORPUSCULAR HEMOGLOBIN 31 pg (25-34); MEAN CORPUSCULAR HGB CONC 34 g/dL (32-36); MEAN CORPUSCULAR VOLUME 91 fL (80-99); MEAN PLATELET VOLUME 11.6 fL (9.0-12.2); MONOCYTES # (AUTO) 0.8 10^3/uL (0.0-1.0); MONOCYTES % (AUTO) 8 % (0-12); NEUTROPHILS # (AUTO) 7.5 10^3/uL (1.8-7.8); NEUTROPHILS % (AUTO) 72 % (42-75); PLATELET COUNT 132 10^3/uL (130-400); WHITE BLOOD COUNT 10.4 10^3/uL (4.3-11.0)
--- NOTE | 2020-04-17 07:00 | Anesthesia-Regional Post-Op ---
Regional Patient Condition Mental Status: Alert, Oriented x3 Circulation: Same as Pre-Op Headache: Absent Sensation: Full Recovery Motor Block: Absent Post Op Complications Complications Some skin numbness left leg bellow knee too ankle. It is getting better. Follow Up Care/Instructions Patient Instructions None. Please let us know if does not get better. Anesthesia/Patient Condition Patient is doing well, no complaints, stable vital signs, no apparent adverse anesthesia problems. No complications reported per nursing. PALLAVI MARKS CRNA Apr 17, 2020 07:00
--- NOTE | 2020-04-17 07:35 | Postpartum Progress Note ---
Note Note Day # 1 Subjective: Patient is without complaints. Ambulating, voiding. Tolerating a regular diet without nausea or vomiting. Normal lochia. Pain is well controlled with oral pain medications. Objective: Physical Exam: General - Alert and oriented, no apparent distress Abdomen - Soft, appropriately tender to palpation, non-distended, fundus firm at umbilicus Extremities - no edema, negative Stephan's bilaterally Assessment: PPD 1 NVD Plan: Routine care. Encourage breast feeding. Encourage ambulation. Ferrous sulfate supplementation. Plan for discharge today Vitals - Labs Vital Signs - I&O Vital Signs Date Time Temp Pulse Resp B/P (MAP) Pulse Ox O2 Delivery O2 Flow Rate FiO2 04/17/20 06:01 36.4 85 18 134/87 (103) Room Air 04/17/20 01:02 36.5 82 18 128/73 (91) Room Air 04/16/20 21:19 36.6 83 18 129/80 (96) Room Air 04/16/20 18:00 37.1 96 18 126/77 (93) Room Air 04/16/20 17:00 96 18 127/75 (92) Room Air 04/16/20 16:00 37.1 97 18 121/72 (88) Room Air 04/16/20 15:45 83 18 108/70 (83) Room Air 04/16/20 15:30 87 18 130/71 (90) Room Air 04/16/20 15:15 80 18 128/62 (84) Room Air 04/16/20 15:00 93 18 138/69 (92) Room Air 04/16/20 14:53 37.2 04/16/20 14:45 89 18 116/72 (87) Room Air 04/16/20 14:15 129 18 140/81 (100) Room Air 04/16/20 14:00 37.0 96 18 126/67 (86) 98 Room Air 04/16/20 13:45 103 18 136/85 (102) Room Air 04/16/20 13:30 99 18 126/73 (90) Room Air 04/16/20 13:15 63 18 112/67 (82) Room Air 04/16/20 13:00 87 18 118/70 (86) Room Air 04/16/20 12:45 88 18 114/72 (86) Room Air 04/16/20 12:30 89 18 112/71 (85) Room Air 04/16/20 12:15 88 18 106/59 (75) Room Air 04/16/20 12:00 36.9 65 18 111/64 (80) Room Air 04/16/20 11:45 62 18 107/58 (74) Room Air 04/16/20 11:30 75 18 119/67 (84) Room Air 04/16/20 11:15 80 18 105/61 (76) Room Air 04/16/20 11:00 36.5 80 18 116/75 (89) 98 Room Air 04/16/20 10:45 57 18 113/68 (83) Room Air 04/16/20 10:30 77 18 113/70 (84) Room Air 04/16/20 10:15 61 18 112/71 (85) Room Air 04/16/20 10:00 36.5 85 18 110/64 (79) Room Air 04/16/20 09:45 68 18 108/59 (75) Room Air 04/16/20 09:30 70 18 114/66 (82) Room Air 04/16/20 09:15 60 18 111/61 (78) Room Air 04/16/20 09:00 62 18 110/60 (77) Room Air 04/16/20 08:45 84 18 107/72 (84) Room Air 04/16/20 08:30 85 18 107/75 (86) Room Air 04/16/20 08:15 83 18 116/73 (87) Room Air 04/16/20 08:00 86 18 115/75 (88) Room Air 04/16/20 07:45 36.5 81 18 120/72 (88) 100 Room Air I & O 04/17/20 07:00 Intake Total 1300 ml Balance 1300 ml Labs Laboratory Tests 04/17/20 05:50: White Blood Count 10.4, Red Blood Count 3.73L, Hemoglobin 11.4L, Hematocrit 34L, Mean Corpuscular Volume 91, Mean Corpuscular Hemoglobin 31, Mean Corpuscular Hemoglobin Concent 34, Red Cell Distribution Width 13.3, Platelet Count 132, Mean Platelet Volume 11.6, Immature Granulocyte % (Auto) 0, Neutrophils (%) (Auto) 72, Lymphocytes (%) (Auto) 19, Monocytes (%) (Auto) 8, Eosinophils (%) (Auto) 1, Basophils (%) (Auto) 0, Neutrophils # (Auto) 7.5, Lymphocytes # (Auto) 2.0, Monocytes # (Auto) 0.8, Eosinophils # (Auto) 0.1, Basophils # (Auto) 0.0, Immature Granulocyte # (Auto) 0.0 ILANA TRAN DO Apr 17, 2020 07:35
[2020-04-17] MEDS ORDERED: IBUP-844 PO (07:36)
[2020-04-17] MEDS ORDERED: DCS100C PO (07:36)
[2020-04-17] MEDS ORDERED: BENZ78AE5 TP (07:36)
--- NOTE | 2020-04-17 07:37 | Discharge Inst-Women's Service ---
Discharge Inst-Women's Serv Depart Medication/Instructions New, Converted or Re-Newed RX: RX on Chart Final Diagnosis PPD 1 NVD Problems Reviewed?: Yes Consults/Follow Up Additional Follow Up: Yes Orders/Referrals Dr. Tran in 6 weeks Activity Activity: Activity as Tolerated Driving Instructions: No Driving for 1 Week NO SMOKING: NO SMOKING Nothing Inside Vagina: No Douching, No [place], No Tampons Diet Discharge Diet: No Restrictions Symptoms to Report to : Bleeding Excessive, Pain Increased, Fever Over 101 Degrees F, Vaginal Bleeding Increase, Questions/Concerns For Any Problems or Questions: Contact Your Physician ILANA TRAN DO Apr 17, 2020 07:37
[2020-04-17] MEDS: ACETAMINOPHEN 500 MG TAB (TYLENOL) PO PRN (07:45)
[2020-04-17] MEDS: DOCUSATE SODIUM 100 MG (COLACE) CAP PO SCH (07:45)
--- NOTE | 2020-04-17 07:45 | NUR ---
PT JUST GOT UP TO THE BATHROOM, HAD REQUESTED SOMETHING FOR PAIN. TYLENOL AVAILABLE, PT WISHES TO TAKE. MEDS GIVEN PO; SEE EMAR FOR FURTHER. PT PREPPING TO FEED INFANT. CALL LIGHT WITHIN REACH.
--- NOTE | 2020-04-17 08:00 | NUR ---
DR. TRAN TO PT'S BEDSIDE.
[2020-04-17 10:00] VITALS: BP 110/69
--- NOTE | 2020-04-17 10:00 | NUR ---
PT IN BED, HOLDING . VS OBTAINED. PHYSICAL ASSESSMENT COMPLETED; SEE INTERVENTION FOR FURTHER. NO NEEDS VOICED. CALL LIGHT WITHIN REACH.
[2020-04-17] MEDS: WITCH HAZEL(TUCKS) 40 EA JAR TOP PRN (11:32)
[2020-04-17] MEDS: BENZOCAINE/MENTHOL (DERMOPLAST) 60 ML CAN TP PRN (11:32)
--- NOTE | 2020-04-17 11:35 | NUR ---
SUPPLIES AND MEDS PROVIDED PER REQUEST; SEE EMAR FOR FURTHER.
--- NOTE | 2020-04-17 12:37 | NUR ---
SHOWER SET UP PER REQUEST. [employer] DELIVERED.
--- NOTE | 2020-04-17 15:25 | NUR ---
DISCHARGE PAPERS PROVIDED AND REVIEWED WITH PT, PT VERBALIZES UNDERSTANDING AND DENIES ANY QUESTIONS AT THIS TIME. PAPER SIGNED. FOLLOW UP APPOINTMENT CARD AND RX'S ALSO PROVIDED AT THIS TIME AND PLACED INTO DISCHARGE FOLDER.
--- NOTE | 2020-04-17 16:53 | NUR ---
PT DISCHARGED FROM -309 TO [facility]ERSONAL [facility] VIA AMBULATORY IN STABLE CONDITION ACC BY THIS RN, S/O AND .
== END 2020-04-17 16:53 | disposition home or self-care (01) | DRG 807 ==
LOC: LDRP 18:57
PROVIDERS: ADMIT Obstetrics & Gynecology; ATTEND Obstetrics & Gynecology
PROC: 3E0P7VZ Introduction of Hormone into Female Reproductive, Via Natural or Artificial Opening (ICD-10-PCS; 2020-04-15)
PROC: 10E0XZZ Delivery of Products of Conception, External Approach (ICD-10-PCS; principal; 2020-04-16)
PROC: 0HQ9XZZ Repair Perineum Skin, External Approach (ICD-10-PCS; 2020-04-16)
DX: O70.0 First degree perineal laceration during delivery (principal); Z37.0 Single live birth; Z3A.39 39 weeks gestation of pregnancy; Z20.828 Contact with and (suspected) exposure to other viral communicable diseases
CPT/HCPCS: 36415; 85025; 86850; 86900; 86901; 87635

== ENCOUNTER → 2022-09-05 | Outpatient (CLI) | payer BC ==
[~2022-09-05] MED LIST changes: +BENZ78AE5 TP; +DOCU-239 PO
--- NOTE | 2022-09-05 14:27 | Diagnostic Imaging Report ---
INDICATION: Anatomy scan. TECHNIQUE: Multiple real-time grayscale images were obtained over the gravid uterus. COMPARISON: None. FINDINGS: There is a single live fetus in a cephalic presentation. heart rate was recorded at 155 BPM. Placenta is posterior. No previa is identified. Amniotic fluid volume is 14.4 cm. Cervical length is 5.2 cm. kidneys, bladder and stomach are unremarkable. brain is unremarkable. There is a four-chamber heart. There is a three-vessel cord with normal insertion. spine is unremarkable. Biometrical measurements are as follows: Biparietal 4.58 cm, age 19 weeks 6 days. Head circumference 17.90 cm, age 20 weeks 3 days. Abdominal circumference 14.36 cm, age 19 weeks 5 days. Femur length 3.10 cm, age 19 weeks 5 days. Sonographic estimate age: 20 weeks 0 days. Sonographic estimated date of delivery: 01/23/2023. Estimated Weight: 310 gm (+/- 46 gm). LMP percentile: 24%. heart rate: 155 beats per minute. number: 1 of 1. IMPRESSION: Single live IUP of approximately 20 weeks 0 days gestational age. Estimated date of confinement sonographically is 01/23/2023. Dictated by: Dictated on workstation # [id number]
== END ==
LOC: RAD 09:53
PROVIDERS: ATTEND Nurse Practitioner Women's Health
DX: Z34.02 Encounter for supervision of normal first pregnancy, second trimester (principal); Z3A.20 20 weeks gestation of pregnancy
CPT/HCPCS: 76805

== ENCOUNTER 2022-12-12 14:35 | Outpatient (CLI) | payer BC ==
[~2022-12-12] VITALS: Ht 160 cm; Wt 91.0 kg
[2022-12-12] VITALS (7 sets, daily range): BP systolic 127–146; BP diastolic 79–89
[2022-12-12] MEDS ORDERED: NS IV 500 ML 500 ML IV SCH (14:45)
[2022-12-12] MEDS ORDERED: ASPIRIN 325 MG TABLET PO ONE (15:00)
[2022-12-12 15:07] LABS: CLARITY,URINE SL CLOUDY; COLOR,URINE YELLOW
[2022-12-12 15:08] LABS: BACTERIA,URINE FEW /HPF; BILIRUBIN,URINE NEGATIVE (NEGATIVE); GLUCOSE, URINE (UA) NEGATIVE (NEGATIVE); KETONES,URINE 2+ (NEGATIVE); LEUKOCYTE ESTERASE ,URINE 1+ (NEGATIVE); NITRITE,URINE NEGATIVE (NEGATIVE); PROTEIN,URINE 2+ (NEGATIVE); RBC,URINE 0-2 /HPF; SQUAMOUS EPITHELIAL CELL,UR 0-2 /HPF
[2022-12-12 15:12] LABS: BASOPHILS % (AUTO) 0 % (0-10); EOSINOPHILS # (AUTO) 0.1 10^3/uL (0.0-0.3); EOSINOPHILS % (AUTO) 1 % (0-10); HEMATOCRIT 33 % (35-52); HEMOGLOBIN 11.2 g/dL (11.5-16.0); LYMPHOCYTES # (AUTO) 1.5 10^3/uL (1.0-4.0); LYMPHOCYTES % (AUTO) 16 % (12-44); MEAN CORPUSCULAR HEMOGLOBIN 30 pg (25-34); MEAN CORPUSCULAR HGB CONC 34 g/dL (32-36); MEAN CORPUSCULAR VOLUME 88 fL (80-99); MEAN PLATELET VOLUME 11.3 fL (9.0-12.2); MONOCYTES # (AUTO) 0.6 10^3/uL (0.0-1.0); MONOCYTES % (AUTO) 7 % (0-12); NEUTROPHILS # (AUTO) 7.3 10^3/uL (1.8-7.8); NEUTROPHILS % (AUTO) 76 % (42-75); PLATELET COUNT 204 10^3/uL (130-400); WHITE BLOOD COUNT 9.6 10^3/uL (4.3-11.0)
[2022-12-12 15:25] LABS: ALBUMIN 3.2 GM/DL (3.2-4.5); POTASSIUM 3.4 MMOL/L (3.6-5.0)
[2022-12-12 15:27] LABS: CALCIUM 8.8 MG/DL (8.5-10.1)
[2022-12-12 15:28] LABS: TOTAL PROTEIN 6.5 GM/DL (6.4-8.2)
[2022-12-12 15:30] LABS: BILIRUBIN,TOTAL 0.3 MG/DL (0.1-1.0)
[2022-12-12 15:31] LABS: CREATININE SERUM 0.63 MG/DL (0.60-1.30)
[2022-12-12 15:34] LABS: URIC ACID 4.5 MG/DL (2.6-7.2)
[2022-12-12] MEDS ORDERED: BETAMETHASONE Acetate/Na Phosphate 6 MG/ML INJ ONE (16:42)
[2022-12-12] MEDS ORDERED: BETAMETHASONE Acetate/Na Phosphate 6 MG/ML INJ IM SCH (16:45)
[2022-12-12] MEDS ORDERED: ASPI-999 PO (16:51)
[2022-12-12] MEDS ORDERED: OMEP10CA5 PO (16:53)
[2022-12-12] MEDS ORDERED: DOXY25TA56 PO (16:53)
--- NOTE | 2022-12-15 08:17 | Physician Query-Final Dx ---
NICOLE,12/15/22 0817: Clinic Account Progress/Dx Physician Query: Please give diagnosis Please include # weeks gestation Date of Service Dec 12, 2022 at 14:35 ILANA TRAN DO 12/15/22 1250: Clinic Account Progress/Dx DIAGNOSIS: Diagnosis 34 week IUP Mild preE NICOLE,AprDec 15, 2022 08:17 ILANA TRAN DO Dec 15, 2022 12:50
== END 2022-12-12 17:05 | disposition home or self-care (01) ==
LOC: LDRP 14:35 → WSo 14:35
PROVIDERS: ATTEND Obstetrics & Gynecology
DX: O99.891 Other specified diseases and conditions complicating pregnancy (principal); Z3A.34 34 weeks gestation of pregnancy
CPT/HCPCS: 36415; 80053; 81000; 82570; 84156; 84550; 85025; 87088

== ENCOUNTER 2022-12-13 16:57 | Outpatient (CLI) | payer BC ==
[~2022-12-13 16:57] MED LIST changes: +ASPI-999 PO; +DOXY25TA56 PO; +OMEP10CA5 PO
[2022-12-13 17:10] VITALS: BP 134/91
[2022-12-13] MEDS ORDERED: BETAMETHASONE Acetate/Na Phosphate 6 MG/ML INJ IM ONE (17:10)
[2022-12-13] MEDS ORDERED: BETAMETHASONE Acetate/Na Phosphate 6 MG/ML INJ ONE (17:25)
[2022-12-13 17:27] VITALS: BP 124/84
== END 2022-12-13 17:30 | disposition home or self-care (01) ==
LOC: WSo 16:57
PROVIDERS: ATTEND Obstetrics & Gynecology
DX: O14.03 Mild to moderate pre-eclampsia, third trimester (principal); Z3A.00 Weeks of gestation of pregnancy not specified
CPT/HCPCS: 96372; 99211

== ENCOUNTER 2023-01-06 19:00 | Inpatient (IN) | payer BC ==
[~2023-01-06] VITALS: Ht 162.6 cm; Wt 89.6 kg
[2023-01-06 20:12] VITALS: BP 129/80
[2023-01-06] MEDS ORDERED: NS (IVPB) 250 ML 250 ML IV ONE (20:30)
[2023-01-06] MEDS ORDERED: HYDROmorphone INJECTION 2 MG/ML VIAL IV PRN (20:30)
[2023-01-06] MEDS ORDERED: NS (IVPB) 250 ML 250 ML ONE (20:42)
[2023-01-06] MEDS ORDERED: D5 LR 1,000 ML IV SOLN 1,000 ML IV ONE (20:42)
[2023-01-06] MEDS ORDERED: LACTATED RINGERS 1,000 ML 500 ML IV PRN (20:45)
[2023-01-06] MEDS: D5 LR 1,000 ML IV SOLN 1,000 ML IV SCH (20:50)
[2023-01-06 20:57] LABS: BASOPHILS % (AUTO) 0 % (0-10); EOSINOPHILS # (AUTO) 0.1 10^3/uL (0.0-0.3); EOSINOPHILS % (AUTO) 1 % (0-10); HEMATOCRIT 33 % (35-52); HEMOGLOBIN 10.8 g/dL (11.5-16.0); LYMPHOCYTES # (AUTO) 2.2 10^3/uL (1.0-4.0); LYMPHOCYTES % (AUTO) 22 % (12-44); MEAN CORPUSCULAR HEMOGLOBIN 28 pg (25-34); MEAN CORPUSCULAR HGB CONC 33 g/dL (32-36); MEAN CORPUSCULAR VOLUME 86 fL (80-99); MEAN PLATELET VOLUME 11.2 fL (9.0-12.2); MONOCYTES # (AUTO) 0.7 10^3/uL (0.0-1.0); MONOCYTES % (AUTO) 7 % (0-12); NEUTROPHILS % (AUTO) 70 % (42-75); PLATELET COUNT 198 10^3/uL (130-400)
[2023-01-06 21:05] LABS: ALBUMIN 3.1 GM/DL (3.2-4.5)
[2023-01-06 21:06] LABS: POTASSIUM 3.7 MMOL/L (3.6-5.0)
[2023-01-06 21:07] LABS: CALCIUM 8.7 MG/DL (8.5-10.1)
[2023-01-06 21:08] LABS: TOTAL PROTEIN 6.1 GM/DL (6.4-8.2)
[2023-01-06 21:10] LABS: BILIRUBIN,TOTAL 0.3 MG/DL (0.1-1.0)
[2023-01-06 21:12] LABS: CREATININE SERUM 0.68 MG/DL (0.60-1.30)
[2023-01-06 22:28] LABS: BACTERIA,URINE FEW /HPF; BILIRUBIN,URINE NEGATIVE (NEGATIVE); CLARITY,URINE CLEAR; COLOR,URINE YELLOW; GLUCOSE, URINE (UA) NEGATIVE (NEGATIVE); KETONES,URINE 1+ (NEGATIVE); LEUKOCYTE ESTERASE ,URINE 1+ (NEGATIVE); NITRITE,URINE NEGATIVE (NEGATIVE); PH,URINE 5.5 (5-9); PROTEIN,URINE NEGATIVE (NEGATIVE)
[2023-01-07] VITALS (56 sets, daily range): BP systolic 89–140; BP diastolic 56–90
[2023-01-07] MEDS: D5 LR 1,000 ML IV SOLN 1,000 ML IV SCH ×2 (04:50→12:48)
[2023-01-07] MEDS ORDERED: OXYTOCIN DRIP PRE-MIX 500 ML IV SCH ×2 (08:15→17:00)
--- NOTE | 2023-01-07 08:50 | History & Physical-OB ---
OB - Chief Complaint & HPI Date/Time Date of Admission: Date of Admission: Jan 06, 2023 at 19:36 Date seen by a Provider: Jan 07, 2023 Time Seen by a Provider: 08:00 Chief Complaint/History OB-Reason for Admission/Chief: Induction of Labor Hx : 3 Hx Para: 2 Expected Date of Delivery: Jan 22, 2023 Gestational Age in Weeks: 37 Gestational Age in Days: 5 Indication for induction: medical complication Other reason for admission: Mild PreE at 37 weeks. Admission Nurse Assessment Rev: Yes Allergies and Home Medications Allergies Coded Allergies: No Known Drug Allergies (Unverified , 09/15/14) Patient Home Medication List Home Medication List Reviewed: Yes Aspirin (Aspirin) 81 Mg Tab.chew, 81 MG PO DAILY, (Reported) Entered as Reported by: RANDALL AVALOS on 12/12/221650 Docusate Sodium (Dok) 100 Mg Capsule, 100 MG PO BID PRN for CONSTIPATION-1ST LINE Prescribed by: ILANA TRAN on 04/17/20 0736 Doxylamine Succinate (Unisom) 25 Mg Tablet, 25 MG PO, (Reported) Entered as Reported by: RANDALL AVALOS on 12/12/221652 Omeprazole (Omeprazole) 10 Mg Capsule.dr, 10 MG PO, (Reported) Entered as Reported by: RANDALL AVALOS on 12/12/221652 Vit W-Ca,Fe,FA(<1 mg) ( Vitamins) 1 Each Tablet, 1 EACH PO, (Reported) Entered as Reported by: ANITA LARA on 08/19/182052 OB - History Hx of Present Care: Yes Ultrasounds: Normal mid trimester US Obstetrical Complications: Pre-eclampsia Medical Complications: None Delivery History Hx Blood Disorders: No Adverse Rxn to Tranfusion: No Patient Past Medical History na Immunizations Influenza Vaccine Up-to-Date: No; Not Current OB - Admission Exam Physical Exam Vitals: Vital Signs 01/07/23 01/07/23 00:11 04:05 Temp 36.8 Pulse 77 Resp 18 B/P (MAP) 105/61 (76) Pulse Ox 100 O2 Delivery Room Air HEENT: NCAT Heart: Rhythm Normal Lungs: Clear Abdomen: Gravid Extremities: Normal Reflexes: Normal Cervical Dilatation: 1cm Effacement: 75% Station: -2 Membranes: Intact Heart Rate: 130's Accelerations: Accelerations Present Decelerations: No Decelerations Short Term Variability: Present Senior Care Variability: Average (6-25) Contractions on Admission: >10 Minutes Apart Intensity: Moderate Labs Laboratory Tests Test 01/06/23 19:45 01/06/23 20:48 Range/Units Urine Color YELLOW Urine Clarity CLEAR Urine pH 5.5 5-9 Urine Specific [place] 1.015 L 1.016-1.022 Urine Protein NEGATIVE NEGATIVE Urine Glucose (UA) NEGATIVE NEGATIVE Urine Ketones 1+ H NEGATIVE Urine Nitrite NEGATIVE NEGATIVE Urine Bilirubin NEGATIVE NEGATIVE Urine Urobilinogen 0.2 < = 1.0 MG/DL Urine Leukocyte Esterase 1+ H NEGATIVE Urine RBC (Auto) TRACE H NEGATIVE Urine RBC 2-5 H /HPF Urine WBC 2-5 /HPF Urine Squamous Epithelial Cells 2-5 /HPF Urine Crystals NONE /LPF Urine Bacteria FEW H /HPF Urine Casts NONE /LPF Urine Mucus NEGATIVE /LPF Urine Culture Indicated YES White Blood Count 10.0 4.3-11.0 10^3/uL Red Blood Count 3.83 3.80-5.11 10^6/uL Hemoglobin 10.8 L 11.5-16.0 g/dL Hematocrit 33 L 35-52 % Mean Corpuscular Volume 86 80-99 fL Mean Corpuscular Hemoglobin 28 25-34 pg Mean Corpuscular Hemoglobin Concent 33 32-36 g/dL Red Cell Distribution Width 13.3 10.0-14.5 % Platelet Count 198 130-400 10^3/uL Mean Platelet Volume 11.2 9.0-12.2 fL Immature Granulocyte % (Auto) 1 % Neutrophils (%) (Auto) 70 42-75 % Lymphocytes (%) (Auto) 22 12-44 % Monocytes (%) (Auto) 7 0-12 % Eosinophils (%) (Auto) 1 0-10 % Basophils (%) (Auto) 0 0-10 % Neutrophils # (Auto) 7.0 1.8-7.8 10^3/uL Lymphocytes # (Auto) 2.2 1.0-4.0 10^3/uL Monocytes # (Auto) 0.7 0.0-1.0 10^3/uL Eosinophils # (Auto) 0.1 0.0-0.3 10^3/uL Basophils # (Auto) 0.0 0.0-0.1 10^3/uL Immature Granulocyte # (Auto) 0.1 0.0-0.1 10^3/uL Sodium Level 136 135-145 MMOL/L Potassium Level 3.7 3.6-5.0 MMOL/L Chloride Level 107 98-107 MMOL/L Carbon Dioxide Level 17 L 21-32 MMOL/L Anion Gap 12 5-14 MMOL/L Blood Urea Nitrogen 9 7-18 MG/DL Creatinine 0.68 0.60-1.30 MG/DL Estimat Glomerular Filtration Rate 122 BUN/Creatinine Ratio 13 Glucose Level 92 70-105 MG/DL Calcium Level 8.7 8.5-10.1 MG/DL Corrected Calcium 9.4 8.5-10.1 MG/DL Total Bilirubin 0.3 0.1-1.0 MG/DL Aspartate Amino Transf (AST/SGOT) 20 5-34 U/L Alanine Aminotransferase (ALT/SGPT) 15 0-55 U/L Alkaline Phosphatase 119 40-136 U/L Total Protein 6.1 L 6.4-8.2 GM/DL Albumin 3.1 L 3.2-4.5 GM/DL Syphilis Total Antibody Negative Negative OB - Assessment/Plan/Diagnosis Assessment Assessment: induction of labor Admission Dx 27 yo @ 37.6 weeks Mild PreE GBS neg Admission Status: Inpatient Order (span 2 midnights) Reason for Inpatient Admission: IOL at 37 weeks for PreE Plan Induction Method: per Misoprostol Protocol ILANA TRAN DO Jan 07, 2023 08:49
[2023-01-07] MEDS ORDERED: fentaNYL 2 mcg/ml BUPIVA 0.125 100 ML ONE (09:51)
[2023-01-07] MEDS ORDERED: CATHETER FLUSH 10 ML SYR IV PRN (11:00)
[2023-01-07] MEDS ORDERED: fentaNYL 2 mcg/ml BUPIVA 0.125 100 ML EPI SCH (11:00)
[2023-01-07] MEDS ORDERED: LACTATED RINGERS 1,000 ML 1,000 ML IV ONE (11:00)
[2023-01-07] MEDS ORDERED: NALOXONE 0.4 MG/ML 1 ML VIAL IV PRN ×2 (11:00→17:00)
[2023-01-07] MEDS ORDERED: fentaNYL INJECTION 100 MCG/2 ML VIAL ONE ×2 (11:14→16:55)
[2023-01-07] MEDS ORDERED: BUPIVACAINE 0.5% 10 ML VIAL ONE ×3 (11:32→17:50)
[2023-01-07] MEDS ORDERED: ONDANSETRON INJECTION 4 MG/2 ML (SDV) ONE ×2 (12:51→17:38)
[2023-01-07] MEDS ORDERED: ONDANSETRON INJECTION 4 MG/2 ML (SDV) IV PRN (13:00)
[2023-01-07] MEDS ORDERED: METOCLOPRAMIDE INJ 10 MG/2 ML IV PRN (13:00)
[2023-01-07] MEDS ORDERED: NS (IVPB) 250 ML 250 ML ONE (16:47)
[2023-01-07] MEDS ORDERED: AZITHROMYCIN INJECTION 500 MG VIAL ONE (16:47)
[2023-01-07] MEDS ORDERED: METOCLOPRAMIDE INJ 10 MG/2 ML ONE (16:47)
[2023-01-07] MEDS ORDERED: CITRIC ACID/SODIUM CITRATE ORAL SOLN 30 ML ONE (16:47)
[2023-01-07] MEDS ORDERED: TERBUTALINE INJ 1 MG/ML (BRETHINE) AMP ONE (16:48)
[2023-01-07] MEDS ORDERED: FAMOTIDINE INJ 20MG/2ML VIAL ONE (16:48)
[2023-01-07] MEDS ORDERED: ceFAZolin INJECTION 2,000 MG ONE (16:49)
[2023-01-07] MEDS ORDERED: NS (IVPB) 50 ML 50 ML ONE (16:54)
[2023-01-07] MEDS ORDERED: ONDANSETRON INJECTION 4 MG/2 ML (SDV) IVP PRN (17:00)
[2023-01-07] MEDS ORDERED: MEASLES, MUMPS, RUBELLA VACCINE (MMR) SC SCH (17:00)
[2023-01-07] MEDS ORDERED: Tetanus/Diphtheria/Pertussis (Acell) ADULT Vaccine 0.5 ML IM SCH (17:00)
--- NOTE | 2023-01-07 17:00 | Progress Note ---
Standard Progress Note Progress Notes/Assess & Plan Date Seen by a Provider: Jan 07, 2023 Time Seen by a Provider: 16:55 Progress/Assessment & Plan Contacted by RN stating patient having lots of new onset back pain with epidural, she checked patient and unsure of presenting part but complete mireille lation. I confirmed breech presentation with bedside US. Called for stat PLTCS due to malpresentation. ILANA TRAN DO Jan 07, 2023 17:00
[2023-01-07] MEDS ORDERED: LIDOCAINE PF 2% 5 ML VIAL ONE (17:38)
[2023-01-07] MEDS ORDERED: OXYTOCIN DRIP PRE-MIX 500 ML IV ONE (17:38)
--- NOTE | 2023-01-07 17:55 | Diagnostic Imaging Report ---
HISTORY: Postop stat . COMPARISON: None. TECHNIQUE: Frontal view of the lower abdomen and pelvis. FINDINGS: No distended loops of bowel are seen. No acute osseous abnormality is identified. There is a lead overlying the lower abdomen. No unexpected radiopaque foreign body is identified. IMPRESSION: No unexpected foreign body seen in the lower abdomen and pelvis. Dictated by: Dictated on workstation # [id number]
[2023-01-07] MEDS: KETOROLAC INJ 30 MG/ML VIAL IV SCH (18:20)
[2023-01-07] MEDS ORDERED: KETOROLAC INJ 30 MG/ML VIAL ONE (18:29)
[2023-01-07] MEDS: HYDROcodone/ACETAMINOPHEN 5 MG/325 MG TABLET PO PRN (21:41)
[2023-01-07] MEDS: DOCUSATE SODIUM 100 MG CAPSULE PO SCH (21:41)
[2023-01-07] MEDS ORDERED: CATHETER FLUSH 10 ML SYR IV SCH (22:00)
[2023-01-08 00:25] VITALS: BP 128/76
[2023-01-08] MEDS: KETOROLAC INJ 30 MG/ML VIAL IV SCH ×3 (00:26→11:12)
--- NOTE | 2023-01-08 03:15 | OPERATIVE REPORT ---
PREOPERATIVE DIAGNOSES: 1. A 27-year-old G3, P2 at 37 weeks and 6 days' gestation. 2. Mild preeclampsia. 3. Malpresentation. POSTOPERATIVE DIAGNOSES: 1. A 27-year-old G3, P2 at 37 weeks and 6 days' gestation. 2. Mild preeclampsia. 3. Malpresentation. PROCEDURE: Primary low transverse section. SURGEON: Delvin Tran DO ANESTHESIA: Epidural, which was bolused. ESTIMATED BLOOD LOSS: 700 mL. URINE OUTPUT: 50 mL clear at the end of the procedure. FLUIDS: 1000 mL lactated Ringer's solution. FINDINGS: A live male weighing 6 pounds 14 ounces, Apgars of 7 and 8. Grossly normal appearing uterus, bilateral fallopian tubes and ovaries. SPECIMEN SENT: Placenta. INDICATIONS FOR PROCEDURE: This patient was brought in for induction of labor and unfavorable cervix was noted, but due to mild preeclampsia, induction was done at 37 weeks. She received misoprostol Cytotec overnight and presentation was confirmed with vertex. This morning, Pitocin augmentation was administered to maximum dose of 8 milliunits. Artificial rupture of membranes was performed after epidural was placed. She then progressed to 7 cm, at which point I was notified. Finally, I was notified that the patient started having a lot of back pain despite the epidural. I was asked to come and evaluate due to questionable presentation on examination. Upon evaluating. I was able to do a bedside ultrasound, which revealed breech presentation. I discussed with the patient an emergency primary . Risks were reviewed. After all of her questions were answered agreeable to proceed. Consent was obtained. The patient was taken to the operating room. OPERATIVE DESCRIPTION IN DETAIL Once in the operating room, epidural analgesia was bolused and found to be adequate, was placed in supine position with leftward tilt, prepped and draped in normal sterile fashion. A timeout was performed. Anesthesia was tested and then make a Pfannenstiel skin incision with a knife and carried down to underlying fascia using Bovie cautery. The fascial incision extended laterally using Bovie cautery. The fascial plane was then bluntly dissected down to the midline of the rectus muscle, which was bluntly dissected down the midline, which allowed me to enter the peritoneum, which I entered bluntly, extended using blunt traction. Milton ring retractor was placed in the peritoneal incision, which offers excellent lateral sidewall retraction. I identified the lower uterine segment, found to be thinned out. I make a low transverse incision to the vesicouterine peritoneum and bluntly dissected off the lower uterine segment, creating a bladder flap. I then proceeded my myotomy until membranes were visualized, at which point I thinned uterine incision laterally and superiorly using bandage scissors. Amniotomy through the incision was noted at that point. The infant was found in the breech presentation. The buttocks were elevated up to the incision where delivered through the incision up to the upper torso, at which point, the was rotated downward facing presentation. The arms were delivered by sweeping them across the chest by elevating the infant and flexing the head through the incision. The head was delivered through the incision. The nares and oropharynx were bulb suctioned. The infant was brought to the operative field where cords were doubly clamped and cut. Infant was handed off to waiting nurses in attendance. Cord blood was collected. Three-vessel cord with intact placenta was delivered spontaneously thereafter. IV Pitocin was initiated to facilitate uterine contraction. Uterine fundus confirmed by manual massage. The uterus was then exteriorized and cleared endometrial clots and debris. There is of note, a cervical extension of the uterine incision. This was first closed using 0 Vicryl suture in a running locked fashion. I then closed the incision itself using 0 Vicryl suture in a running locked fashion. Second layer of imbricating 0 Monocryl was placed. Excellent hemostasis was noted after doing this. I then placed the uterus back in the pelvis and copiously irrigated the pelvis using normal saline. Once again, there was no active bleeding noted from any of my dissection planes. I placed Interceed antiadhesive over my low transverse incision. I removed the Milton ring retractor and then proceeded with closing the peritoneum using 3-0 Vicryl suture in a running fashion. Rectus muscles were reapproximated using 3-0 Vicryl suture in interrupted fashion. The fascia was reapproximated using 0 Vicryl suture in a running fashion. The subcutaneous tissue was reapproximated using 3-0 plain interrupted subcutaneous stitch and skin reapproximated using 4-0 Monocryl running subcuticular. Dermabond was applied to incision, sterile dressing was adhesed with white tape. The patient tolerated the procedure well and sent to recovery area in stable condition. Lap and sponge counts were correct at the end of the procedure. Instrument counts correct as well. Two grams of Ancef were given preoperatively for infection prophylaxis. Job ID: [id number] DocumentID: [id number] Dictated Date: 01/07/2023 18:15:19 Incident Analyst Date: 01/08/2023 03:12:00 Dictated By: DELVIN TRAN DO
[2023-01-08 03:19] VITALS: BP 137/83
[2023-01-08] MEDS: HYDROcodone/ACETAMINOPHEN 5 MG/325 MG TABLET PO PRN ×5 (03:23→22:19)
[2023-01-08 06:12] LABS: BASOPHILS % (AUTO) 0 % (0-10); EOSINOPHILS # (AUTO) 0.1 10^3/uL (0.0-0.3); EOSINOPHILS % (AUTO) 1 % (0-10); HEMATOCRIT 25 % (35-52); HEMOGLOBIN 8.1 g/dL (11.5-16.0); LYMPHOCYTES # (AUTO) 1.5 10^3/uL (1.0-4.0); LYMPHOCYTES % (AUTO) 16 % (12-44); MEAN CORPUSCULAR HEMOGLOBIN 29 pg (25-34); MEAN CORPUSCULAR HGB CONC 33 g/dL (32-36); MEAN CORPUSCULAR VOLUME 88 fL (80-99); MEAN PLATELET VOLUME 11.4 fL (9.0-12.2); MONOCYTES # (AUTO) 0.9 10^3/uL (0.0-1.0); MONOCYTES % (AUTO) 9 % (0-12); NEUTROPHILS # (AUTO) 6.9 10^3/uL (1.8-7.8); NEUTROPHILS % (AUTO) 74 % (42-75); PLATELET COUNT 146 10^3/uL (130-400); WHITE BLOOD COUNT 9.3 10^3/uL (4.3-11.0)
--- NOTE | 2023-01-08 06:37 | Postpartum Progress Note ---
Note Note Day # 1 Subjective: Patient is without complaints. Ambulating, voiding. Tolerating a regular diet without nausea or vomiting. Normal lochia. Pain is well controlled with oral pain medications. Objective: Physical Exam: General - Alert and oriented, no apparent distress Abdomen - Soft, appropriately tender to palpation, non-distended, fundus firm at umbilicus Extremities - no edema, negative Stephan's bilaterally Incision- c/d/i Assessment: POD 1 PLTCS- breech presentation Acute blood loss anemia Mild PreE- bp elevation has resolved Plan: Routine care. Encourage breast feeding. Encourage ambulation. Ferrous sulfate supplementation. Plan for discharge today if transferred or tomorrow Vitals - Labs Vital Signs - I&O Vital Signs Date Time Temp Pulse Resp B/P (MAP) Pulse Ox O2 Delivery O2 Flow Rate FiO2 01/08/23 03:19 36.4 90 18 137/83 (101) 98 Room Air 01/08/23 00:25 37.1 98 20 128/76 (93) 97 Room Air 01/07/23 22:00 36.7 104 16 115/71 (86) 97 Room Air 01/07/23 21:44 Room Air 01/07/23 19:52 37.4 113 18 115/67 (83) 99 Room Air 01/07/23 19:02 Room Air 01/07/23 19:02 36.4 18 121/72 (88) 98 Room Air 01/07/23 18:47 Room Air 01/07/23 18:47 36.3 18 120/58 (78) 98 Room Air 01/07/23 18:32 36.2 20 117/89 (98) 98 Room Air 01/07/23 18:32 Room Air 01/07/23 18:17 36.2 20 89/65 (73) 98 Room Air 01/07/23 18:02 36.2 24 105/65 (78) 98 Room Air 01/07/23 17:05 116 134/77 (96) 01/07/23 16:50 129 139/90 (106) 01/07/23 16:35 107 138/68 (91) 01/07/23 16:20 83 112/64 (80) 01/07/23 16:00 82 115/62 (79) 01/07/23 15:45 81 119/64 (82) 01/07/23 15:35 94 116/64 (81) 01/07/23 15:20 73 118/63 (81) 01/07/23 15:00 76 115/68 (84) 01/07/23 14:50 71 120/62 (81) 01/07/23 14:35 36.8 85 133/78 (96) Room Air 01/07/23 14:20 77 104/56 (72) Room Air 01/07/23 14:05 68 115/68 (84) Room Air 01/07/23 13:50 73 111/72 (85) Room Air 01/07/23 13:35 75 115/71 (86) Room Air 01/07/23 13:30 36.7 01/07/23 13:20 76 116/68 (84) Room Air 01/07/23 13:00 74 117/70 (86) Room Air 01/07/23 12:45 78 115/68 (84) 100 Room Air 01/07/23 12:35 78 111/68 (82) 100 Room Air 01/07/23 12:20 75 118/72 (87) 100 Room Air 01/07/23 12:02 68 123/76 (92) 100 Room Air 01/07/23 12:00 73 116/70 (85) 100 Room Air 01/07/23 11:56 78 114/70 (85) 100 Room Air 01/07/23 11:53 72 114/69 (84) 100 Room Air 01/07/23 11:50 66 118/67 (84) 100 Room Air 01/07/23 11:47 74 116/66 (83) 100 Room Air 01/07/23 11:44 80 113/64 (80) 99 Room Air 01/07/23 11:41 76 116/69 (85) 99 Room Air 01/07/23 11:38 73 117/70 (86) 100 Room Air 01/07/23 11:35 83 119/68 (85) 100 Room Air 01/07/23 11:32 73 110/66 (81) 100 Room Air 01/07/23 11:30 90 110/71 (84) 100 Room Air 01/07/23 11:27 76 110/64 (79) 100 Room Air 01/07/23 11:24 81 118/71 (87) 100 Room Air 01/07/23 11:21 36.3 79 123/76 (92) 100 Room Air 01/07/23 11:18 86 121/75 (90) 100 Room Air 01/07/23 11:15 85 20 120/75 (90) 100 Room Air 01/07/23 11:05 115 20 121/74 (90) 100 Room Air 01/07/23 10:50 86 20 120/70 (87) Room Air 01/07/23 10:35 84 123/74 (90) 01/07/23 10:05 85 120/79 (93) 01/07/23 09:50 92 124/78 (93) 01/07/23 09:35 91 124/79 (94) 01/07/23 09:20 88 123/72 (89) 01/07/23 09:05 90 124/78 (93) 01/07/23 08:50 95 120/86 (97) 01/07/23 08:35 97 133/82 (99) Labs Laboratory Tests 01/08/23 05:50: White Blood Count 9.3, Red Blood Count 2.81L, Hemoglobin 8.1#L, Hematocrit 25L, Mean Corpuscular Volume 88, Mean Corpuscular Hemoglobin 29, Mean Corpuscular Hemoglobin Concent 33, Red Cell Distribution Width 13.4, Platelet Count 146, Mean Platelet Volume 11.4, Immature Granulocyte % (Auto) 1, Neutrophils (%) (Auto) 74, Lymphocytes (%) (Auto) 16, Monocytes (%) (Auto) 9, Eosinophils (%) (Auto) 1, Basophils (%) (Auto) 0, Neutrophils # (Auto) 6.9, Lymphocytes # (Auto) 1.5, Monocytes # (Auto) 0.9, Eosinophils # (Auto) 0.1, Basophils # (Auto) 0.0, Immature Granulocyte # (Auto) 0.1 ILANA TRAN DO Jan 08, 2023 06:37
[2023-01-08] MEDS ORDERED: DOCU100C37 PO (06:38)
[2023-01-08] MEDS ORDERED: ACHD5005 PO (06:38)
[2023-01-08] MEDS ORDERED: IBUP-844 PO (06:38)
--- NOTE | 2023-01-08 06:39 | Discharge Inst-Women's Service ---
Discharge Inst-Women's Serv Depart Medication/Instructions New, Converted or Re-Newed RX: Transmitted to Pharmacy Final Diagnosis POD 2 PLTCS Problems Reviewed?: Yes Consults/Follow Up Additional Follow Up: Yes Orders/Referrals Dr. Hanson in 7-10 days and in 6 weeks Activity Activity: Activity as Tolerated Driving Instructions: No Driving for 1 Week NO SMOKING: NO SMOKING Nothing Inside Vagina: No Douching, No [place], No Tampons Diet Discharge Diet: No Restrictions Symptoms to Report to : Bleeding Excessive, Pain Increased, Fever Over 101 Degrees F, Vaginal Bleeding Increase, Questions/Concerns For Any Problems or Questions: Contact Your Physician Skin/Wound Care Infection Signs and Symptoms: Increased Redness, Foul Odor of Wound, Increased Drainage, Skin Itchy or Has a Rash, Increased Swelling, Temperature Above 101 F Operative Area Clean and Dry: Keep Incision Clean/Dry Stitches/[place]/Dermabond: Dermabond, Care of Stitches Bathing Instructions: ILANA Da Silva DO Jan 08, 2023 06:39
[2023-01-08 09:19] VITALS: BP 137/75
[2023-01-08] MEDS: DOCUSATE SODIUM 100 MG CAPSULE PO SCH ×2 (09:21→21:18)
[2023-01-08] MEDS: FERROUS SULFATE 325 MG (IRON) TABLET PO SCH (11:12)
[2023-01-08 12:00] VITALS: BP 116/70
--- NOTE | 2023-01-08 12:50 | Anesthesia-Regional Post-Op ---
Regional Patient Condition Mental Status: Alert, Oriented x3 Circulation: Same as Pre-Op Headache: Absent Sensation: Full Recovery Motor Block: Absent Post Op Complications Complications None Follow Up Care/Instructions Patient Instructions None needed. Anesthesia/Patient Condition Patient is doing well, no complaints, stable vital signs, no apparent adverse anesthesia problems. No complications reported per nursing. DARIN DE LA CRUZ CRNA Jan 08, 2023 12:50
[2023-01-08 16:06] VITALS: BP 139/81
[2023-01-08] MEDS: IBUPROFEN 600 MG TABLET PO SCH ×2 (16:11→21:18)
[2023-01-08 21:18] VITALS: BP 112/71
[2023-01-08] MEDS ORDERED: SIMETHICONE 80 MG CHEWABLE TABLET ONE (22:15)
[2023-01-08] MEDS: SIMETHICONE 80 MG CHEWABLE TABLET PO SCH (22:21)
[2023-01-09 03:25] VITALS: BP 123/85
[2023-01-09] MEDS: HYDROcodone/ACETAMINOPHEN 5 MG/325 MG TABLET PO PRN ×2 (03:28→09:27)
[2023-01-09] MEDS: IBUPROFEN 600 MG TABLET PO SCH ×2 (03:28→09:27)
[2023-01-09] MEDS ORDERED: PRENATAL VITAMIN TABLET PO SCH (07:00)
--- NOTE | 2023-01-09 07:57 | Postpartum Progress Note ---
Note Note Day # 2 Subjective: Patient is without complaints. Ambulating, voiding. Tolerating a regular diet without nausea or vomiting. Normal lochia. Pain is well controlled with oral pain medications. Objective: Physical Exam: General - Alert and oriented, no apparent distress Abdomen - Soft, appropriately tender to palpation, non-distended, fundus firm at umbilicus Extremities - no edema, negative Stephan's bilaterally Incision- c/d/i Assessment: POD 2 PLTCS Acute blood loss anemia Plan: Routine care. Encourage breast feeding. Encourage ambulation. Ferrous sulfate supplementation. Plan for discharge today Vitals - Labs Vital Signs - I&O Vital Signs Date Time Temp Pulse Resp B/P (MAP) Pulse Ox O2 Delivery O2 Flow Rate FiO2 01/09/23 03:25 36.7 80 18 123/85 (98) 100 Room Air 01/08/23 21:18 36.6 82 18 112/71 (85) 97 Room Air 01/08/23 16:06 36.6 96 20 139/81 (100) 100 Room Air 01/08/23 12:00 36.6 92 18 116/70 (85) 97 Room Air 01/08/23 09:19 36.8 103 20 137/75 (95) Room Air Labs Microbiology 01/06/23 Urine Culture - Final, Complete NO GROWTH ILANA TRAN DO Jan 09, 2023 07:57
[2023-01-09] MEDS: DOCUSATE SODIUM 100 MG CAPSULE PO SCH (09:27)
[2023-01-09] MEDS: FERROUS SULFATE 325 MG (IRON) TABLET PO SCH (09:27)
[2023-01-09] MEDS: SIMETHICONE 80 MG CHEWABLE TABLET PO SCH (09:27)
[2023-01-09 09:37] VITALS: BP 127/81
== END 2023-01-09 11:30 | disposition home or self-care (01) | DRG 787 ==
LOC: LDRP 19:36
PROVIDERS: ADMIT Obstetrics & Gynecology; ATTEND Obstetrics & Gynecology
PROC: 10D00Z1 Extraction of Products of Conception, Low, Open Approach (ICD-10-PCS; principal; 2023-01-07 17:10)
DX: O14.04 Mild to moderate pre-eclampsia, complicating childbirth (principal); D62 Acute posthemorrhagic anemia; Z3A.37 37 weeks gestation of pregnancy; Z37.0 Single live birth; O32.1XX0 Maternal care for breech presentation, not applicable or unspecified; O90.81 Anemia of the puerperium
CPT/HCPCS: 36415; 74018; 80053; 81000; 85025; 86780; 86850; 86900; 86901; 87088; 94664